=== PATIENT | female | born 1945 | race Caucasian/White ===

== ENCOUNTER → 2016-09-26 | Outpatient (CLI) | payer MEDICARE ==
[~2016-09-26] MED LIST: ACETAMINOPHEN500 M5 PO; ACETAMINOPHEN500 M7 PO; ADVIL200 M2 PO; ALBUTEROL17 GM INH; ALPRAZOLAM PO; ALPRAZOLAM0.25 M1 PO; ALPRAZOLAM0.25 MG PO; AMIODARONE PO; AMITRIPTYLINE H25 MG PO; AMITRYPTYLINE PO; ANEXSIA 7.5/3251 TA1 PO; ASPIRIN EC81 M1 PO; AUGMENTIN PO; AZITHROMYCIN500 MG PO; BETA VAL TOP; CARDIZEM30 M1 PO; CARDIZEM60 M1 PO; CELEXA PO; CELEXA10 MG PO; CELEXA20 MG PO; CIPRO PO; CIPRO250 MG PO; CITALOPRAM HBR10 MG PO; COMBIVENT MININEB INH; COMBIVENT U/D3 M3 INH; COUMADIN2.5 MG PO; COUMADIN5 MG PO; CRESTOR10 MG PO; CRESTOR5 MG PO; CYANOCOBAL1000 MCG/M IM; DILTIAZEM HCL60 MG PO; DOCU SOFT100 M1 PO; DOXYCYCLINE HY100 M3 PO; DSS100 MG PO; ELIQUIS5 MG PO; FOLIC ACID PO; FOLIC ACID1 MG PO; GABAPENTIN300 M2 PO; GABAPENTIN300 MG PO; GABAPENTIN600 MG PO; HYDROCODON-ACE1 EAC7 PO; HYDROCODONE-APA1 T42 PO; HYDROXYZINE HCL10 MG PO; IPRAT-ALBUT 0.5-3 ML INH; JANTOVEN2.5 MG PO; JANTOVEN5 MG PO; KEFLEX; LASIX PO; LASIX20 MG PO; LEVAQUIN PO; LIPITOR PO; LIPITOR40 MG PO; LISINOPRIL PO; LISINOPRIL10 MG PO; LISINOPRIL20 MG PO; LOMOTIL TABLET1 TAB PO; LOPRESSOR PO; LOVENOX80 MG/0.8 SUBQ; METHYLPREDNISOLO4 MG PO; METOPROLOL SUCC25 MG PO; METOPROLOL SUCC50 MG PO; METOPROLOL TAR25 MG PO; METOPROLOL/HCTZ PO; MOBIC PO; MULTI VITAMIN1 EACH PO; MULTIVITAMINS W1 TAB; NEURONTIN300 MG PO; NEURONTIN600 MG PO; NORCO 5/325 TAB1 TAB PO; NORCO1 TAB 10/3 PO; NORVASC PO; OMNICEF300 M1 PO; ONDANSETRON HCL4 M1 PO; ONDANSETRON HCL4 MG PO; OXYGEN; PANTOPRAZOLE SO40 MG PO; PREDNISONE PO; PREDNISONE10 MG PO; PREDNISONE10 MG/DOSE PO; PROAIR HFA8.5 GM; PROAIR HFA8.5 GM INH; PROMETHAZINE HC25 MG PO; PROTONIX PO; STOOL SOFTENER50 MG PO; SYMBICORT 160/4.6 GM INH; SYMBICORT INH; TAMIFLU75 M1 PO; THIAMINE HCL100 MG; TOPROL XL 50 MG50 M1 PO; TOPROL XL PO; TOPROL XL50 MG PO; VALACYCLOVIR1000 MG PO; VIBRAMYCIN100 M1 PO; VITAMIN B 12 INJ; VITAMIN B-1000 MCG/1 INJ; WARFARIN SODIU2.5 M1 PO; XARELTO15 MG PO; XARELTO20 MG PO; ZESTORETIC 20/11 TAB; ZESTRIL10 M2 PO; ZITHROMAX PO; ZITHROMAX500 MG PO
== END | disposition home or self-care (01) ==
LOC: CLAB 14:32
DX: D64.9 Anemia, unspecified (principal)
CPT/HCPCS: 36415; 86850; 86900; 86901; 86923

== ENCOUNTER → 2016-09-27 | Outpatient (CLI) | payer MEDICARE | END | disposition home or self-care (01) | LOC: CSSDAY 08:28 | DX: D50.9 Iron deficiency anemia, unspecified (principal); K90.9 Intestinal malabsorption, unspecified | CPT/HCPCS: 36430; J1200; J1940; P9016 ==

== ENCOUNTER → 2016-09-28 | Outpatient (CLI) | payer MEDICARE ==
--- NOTE | ~2016-09-28 | CT57 ---
[facility] A Service of [facility] RADIOLOGY TEXT RESULTS PATIENT: KAVYA HUNTER [facility] [id number] : 43 UNIT #: [id number] AGE: [address]: Onur Alas MD SEX: F ORDER DR: [id number] [address] [address] [id number] O MR#: [id number] Acc #: [id number] NAME: KAVYA HUNTER. : 1945 SEX: F STUDY DATE/TIME: 09/28/2016 12:48 UNIT: CCA ROOM: STUDY DESCRIPTION: CT Chest Wo Cont Attending Physician: Onur Alas M.D. Referring Physician: Onur Alas M.D. Ordering Physician: Onur Alas M.D. Primary Care Physician: Leopoldo Wallis Jr., M.D. MEDICAL IMAGING REPORT This report is preliminary unless electronic signature is present EXAM CT chest 09/28/2016 INDICATIONS Lung cancer. New pulmonary nodule. Restaging. TECHNIQUE CT of the thorax without contrast. Coronal and sagittal reconstructions were obtained. This CT exam was performed with one or more of the following radiation dose reduction techniques: automatic exposure control, adjustment of mA and/or kV according to patient size, and iterative reconstruction. COMPARISON CT thorax dated 06/28/2016. FINDINGS There is a patchy nodular opacity in the posterior medial aspect of the left lower lobe measuring up to 1.9 cm. This is unchanged from the prior study of 06/28/2016. There is a new dense area of consolidation in the medial aspect of the superior segment right lower lobe with some associated air bronchograms. This is presumably an area of pneumonia. This results in volume loss in the majority of the superior segment right lower lobe. No pathologically enlarged mediastinal or hilar lymph nodes. No pericardial or pleural effusion. Limited images of the upper abdomen were obtained. There is no acute findings. [facility] A Service of [facility] RADIOLOGY TEXT RESULTS PATIENT: KAVYA HUNTER [facility] #: [id number] : 43 UNIT #: [id number] AGE: [address]: Onur Alas MD SEX: F ORDER DR: No new osseous abnormalities. IMPRESSION 1. Development of a new area of atelectasis and consolidation involving the superior segment, right lower lobe. Air bronchograms support acute pneumonia. Please correlate with clinical symptoms. Short-interval followup is recommended. 2. Patchy airspace opacity in the left lung base is unchanged from prior study and should be followed. Dictated by... Pankaj Ornelas M.D. THIS IS AN ELECTRONICALLY VERIFIED REPORT Pankaj Ornelas M.D. at 09/29/2016 9:23 AM DURGA/valerie TD: 09/28/2016 18:39 JOB #: [id number] MEDICAL IMAGING REPORT COPY
== END | disposition home or self-care (01) ==
LOC: CCAT 12:18
DX: C34.90 Malignant neoplasm of unspecified part of unspecified bronchus or lung (principal); R91.1 Solitary pulmonary nodule; J98.11 Atelectasis; J18.1 Lobar pneumonia, unspecified organism
CPT/HCPCS: 71250

== ENCOUNTER → 2016-10-18 | Outpatient (CLI) | payer MEDICARE ==
[2016-10-18 12:41] LABS: ALBUMIN SERUM 3.1 g/dL (3.5-5.0); BILIRUBIN,TOTAL 0.4 mg/dL (0.2-2.0); CALCIUM SERUM 8.5 mg/dL (8.4-10.2); CREATININE SERUM 1.1 mg/dL (0.6-1.4); GLOM FILT RATE Estimated 50.5 mL/min (>60); MAGNESIUM 1.9 mg/dL (1.6-3.0); POTASSIUM 4.4 mmol/L (3.5-5.1); PROTEIN TOTAL SERUM 6.5 g/dL (6.0-8.3)
[2016-10-18 19:43] LABS: HEMOGLOBIN 8.4 gm/dL (12.0-16.0); MEAN CELL VOLUME 93.8 FL (83-96); MEAN CORPUSCULAR HEMOGLOBIN 29.3 PG (28-34); MEAN CORPUSCULAR HGB CONC 31.2 g/dL (30-36); RED BLOOD COUNT 2.88 X10e (3.90-5.30); RED CELL DISTRIBUTION WIDTH 18.5 % (11.0-15.5); WHITE BLOOD COUNT 7.2 X10e3 (4.0-10.5)
== END | disposition home or self-care (01) ==
LOC: CLAB 11:40
PROVIDERS: Surgery
DX: D64.9 Anemia, unspecified (principal)
CPT/HCPCS: 36415; 80053; 83735; 83880; 85027

== ENCOUNTER 2016-10-20 11:16 | Observation (INO) | payer MEDICARE ==
--- NOTE | ~2016-10-20 | DS ---
Unit #: [id number] #: [id number] Patient: KAVYA HUNTER [id number] [address] [place], [place] [address] [id number] I MR#: [id number] NAME: KAVYA HUNTER ROOM: 47 Age: 70 Sex: F Admission Date: 10/20/2016 : 1945 Discharge Date: 10/21/2016 Attending Physician: Onur Alas M.D. Referring Physician: Missael Hickey M.D. Primary Care Physician: Leopoldo Wallis Jr., M.D. DISCHARGE SUMMARY HOSPITAL COURSE Ms. 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 On CAT scan of the chest on 06/28/2016 she showed a spiculated left lower lobe pulmonary nodule that was biopsied at that time. Final pathology revealed negative for carcinoma. CT scan on 09/28/2016 showed no change in the left lower lobe. However, she did have atelectasis and infiltrate in the right base as well. Subsequently she was scheduled for a bronchoscopy with washings with possible biopsies, flexible bronchoscopy with washings from the right middle lobe, right lower lobe and bronchial washings and DLL from the right lower lobe under the direction of Dr. Alas on 10/20/2016. Unfortunately Ms. Hunter has multiple comorbidities and she did not tolerate conscious sedation. She postoperatively, due to decreased pulmonary status, had some low O2 saturations and was slow to wake up. Dr. Alas chose to keep her in the hospital overnight with the diagnosis of atelectasis on chest x-ray. Today she is back to baseline. Respiratory rate is even and unlabored at 20. She is on O2 at 2 liters, which we have taken off now and will check an O2 saturation. She does already have home O2. PHYSICAL EXAMINATION VITALS: Her temperature is 98.3, heart rate 74 and blood pressure 132/44. LUNGS: Her lungs have bilateral rhonchi, which she is clearing with cough. CARDIOVASCULAR: S1 and S2 without rub, without murmur. No S3 or S4. EXTREMITIES: No peripheral edema. ABDOMEN: Round, soft and bowel sounds positive. Nontender. No pulsatile masses or hepatosplenomegaly. DISCHARGE MEDICATIONS 1. Albuterol HFA. 2. ProAir 2 puffs q.4 h. p.r.n. 3. Symbicort 160/4.5 two inhalations b.i.d. 4. Duo-Nebs, mini-nebs t.i.d. p.r.n. 5. Xarelto 20 mg 1 p.o. daily. She can restart that today. 6. Gabapentin 300 mg 1 b.i.d. 7. Amitriptyline 10 mg once at bedtime. 8. Citalopram 20 mg daily. 9. Alprazolam 0.25 mg t.i.d. 10. Diltiazem 30 mg b.i.d. 11. Metoprolol 25 mg t.i.d. 12. Dulcolax 50 mg daily. 13. Lasix 40 mg daily. Unit #: [id number] #: [id number] Patient: KAVYA HUNTER 14. Atorvastatin 10 mg daily. 15. Folic aid 1 mg daily. 16. We are going to continue Levaquin 500 mg 1 p.o. q.a.m. times 10 days. 17. She will be continued on Levaquin 500 mg at home times 10 days. IMPRESSION 1. Left lower lobe pulmonary nodule with right lung atelectasis and infiltrate. Status post flexible bronchoscopy with fluoroscopy on 10/20/2016, with intolerance to conscious sedation. 2. Atelectasis. PLAN Discharge home. FOLLOWUP Follow up on 10/26/2016 at 2 o'clock at [facility]. [facility] office with Dr. Onur Alas. Dictated by... Austin Hernandez/jena TD: 10/21/2016 09:48 JOB #: [id number] DISCHARGE SUMMARY Page 1 of 1 X Chata Richmond APRN X DISCHARGE SUMMARY
--- NOTE | ~2016-10-20 | CR72 ---
[facility] A Service of [facility] & [facility] RADIOLOGY TEXT RESULTS PATIENT: KAVYA HUNTER LOCATION: [place] [address] : 43 UNIT #: [id number] AGE: [address]: Onur Alas MD SEX: F ORDER DR: [id number] [facility] [address]. [place], [place] [address] [id number] I MR#: [id number] Acc #: [id number] NAME: KAVYA HUNTER. : 1945 SEX: F STUDY DATE/TIME: 10/20/2016 15:17 UNIT: CPACUOF ROOM: STUDY DESCRIPTION: CR Chest Single View Portable Attending Physician: Onur Alas M.D. Referring Physician: Onur Alas M.D. Ordering Physician: Onur Alas M.D. Primary Care Physician: Leopoldo Wallis Jr., M.D. MEDICAL IMAGING REPORT This report is preliminary unless electronic signature is present EXAM Portable chest. HISTORY 70-year-old female with postbronchoscopy. History of lung cancer. COMPARISON 08/12/2006 FINDINGS The right hilar mass appears less dense. No pneumothorax. Stable interstitial changes. Heart size stable. IMPRESSION 1. No pneumothorax. 2. Stable interstitial changes. 3. Right hilar mass appears less dense. Dictated by... Alejo Hoffman M.D. THIS IS AN ELECTRONICALLY VERIFIED REPORT Alejo Hoffman M.D. at 10/20/2016 9:52 PM CHIRAG/gerardo TD: 10/20/2016 18:19 JOB #: [id number] MEDICAL IMAGING REPORT Page 1 of 1 COPY
--- NOTE | ~2016-10-20 | CR72 ---
[facility] A Service of [facility] & [facility] RADIOLOGY TEXT RESULTS PATIENT: KAVYA HUNTER LOCATION: [place] [address]- : 43 UNIT #: [id number] AGE: [address]: Onur Alas MD SEX: F ORDER DR: [id number] [facility] [address] [place], [place] [address] [id number] I MR#: [id number] Acc #: [id number] NAME: KAVYA HUNTER. : 1945 SEX: F STUDY DATE/TIME: 10/21/2016 8:52 UNIT: [facility] ROOM: [facility] STUDY DESCRIPTION: CR Chest Single View Portable Attending Physician: Onur Alas M.D. Referring Physician: Onur Alas M.D. Ordering Physician: Chata Richmond A.P.R.N. Primary Care Physician: Leopoldo Wallis Jr., M.D. MEDICAL IMAGING REPORT This report is preliminary unless electronic signature is present EXAM Portable chest, 10/21/2016. COMPARISON 10/20/2016 HISTORY Supplied is shortness of breath and cough for 2 days. History of left lung cancer in 2012. TECHNIQUE An AP view is obtained. Cardiac size is normal. Postsurgical changes are present in the left apex. The study shows a decrease in pulmonary vascular congestion and interstitial edema. CONCLUSION Significant decrease in interstitial edema compared with the last study. Postop changes of prior left upper lobe resection. Dictated by... Leopoldo Berg M.D. THIS IS AN ELECTRONICALLY VERIFIED REPORT Leopoldo Berg M.D. at 10/23/2016 5:02 PM NENA/gil TD: 10/21/2016 12:45 JOB #: [id number] MEDICAL IMAGING REPORT Page 1 of 1 COPY
--- NOTE | ~2016-10-20 | OR ---
Unit #: [id number] #: [id number] Patient: KAVYA HUNTER [id number] [address] [place], [place] [address] [id number] I MR#: [id number] NAME: KAVYA HUNTER ROOM: 47 Date of Procedure: 10/20/2016 Admission Date: 10/20/2016 Surgeon: Onur Alas M.D. : 1945 Attending Physician: Onur Alas M.D. Referring Physician: Onur Alas M.D. Primary Care Physician: Leopoldo Wallis Jr., M.D. OPERATIVE REPORT PREOPERATIVE DIAGNOSES Infiltrate involving the superior segment of the right lower lobe; prior history of lung carcinoma. POSTOPERATIVE DIAGNOSES Infiltrate involving the superior segment of the right lower lobe; prior history of lung carcinoma. PROCEDURES PERFORMED Flexible fiberoptic bronchoscopy with brushings obtained from the superior segment of the right lower lobe and also from the right middle lobe; bronchial washings collected; bronchoalveolar lavage obtained from the superior segment of the right lower lobe. ANESTHESIA Local plus IV sedation. ESTIMATED BLOOD LOSS Minimal. COMPLICATIONS None. DESCRIPTION OF PROCEDURE The patient was taken to the endoscopy suite and left on her stretcher in a supine position. After appropriate monitoring lines had been placed, IV sedation was obtained using a total of 5 mg of intravenous Versed and 125 mcg of intravenous fentanyl. Anesthesia of the posterior pharynx was obtained using Hurricaine spray. After adequate anesthesia had been obtained in this fashion, the flexible bronchoscope was passed orally per a bite block into the posterior pharynx. The vocal cords were visualized and found to be without lesions and both moved well with phonation. Anesthesia of the cords was obtained by injecting 2% Xylocaine per the scope. The scope was passed through the cords into the trachea. 1% Xylocaine was injected per the scope to anesthetize the tracheobronchial tree. The entire length of trachea was visualized and found to be normal. The kristel was sharp. The left mainstem bronchus was normal. The left upper lobe and left lower lobe were both examined to their subsegmental bronchi level and found to be within normal limits. The right upper lobe was examined to its subsegmental bronchi level and found to be within normal limits. Examination of the right middle lobe revealed some minimal erythema of the medial branch. Examination of the right lower lobe Unit #: [id number] #: [id number] Patient: KAVYA HUNTER demonstrated some mild narrowing of the medial branch of the superior segment. The basilar segments were opened and without lesions. Brushings were obtained from the medial branch of the superior segment of the right lower lobe. Brushings were also obtained from the medial segment of the right middle lobe. Bronchial washings were collected and sent for cytology as well as cultures. Bronchoalveolar lavage was then obtained from the superior segment of the right lower lobe. Following this, the bronchoscope was removed. The patient did experience some drop in O2 sats at the later part of the procedure and this took several minutes for the patient to recover postoperatively. A breathing treatment with albuterol was given to the patient. She was then transported to the recovery area. Dictated by... Onur Alas M.D. GURPREET/gabe TD: 10/21/2016 03:25 JOB #: [id number] OPERATIVE REPORT Page 1 of 1 X Onur Alas MD X PROCEDURE OPERATIVE NOTE
[~2016-10-20 11:16] MED LIST changes: -ACETAMINOPHEN500 M7 PO; -AMIODARONE PO; -ASPIRIN EC81 M1 PO; -AUGMENTIN PO; -CYANOCOBAL1000 MCG/M IM; -DOXYCYCLINE HY100 M3 PO; -LEVAQUIN PO; -PANTOPRAZOLE SO40 MG PO; -PREDNISONE PO; -VITAMIN B 12 INJ; -XARELTO15 MG PO
[2016-10-20] MEDS ORDERED: XARELTO20 MG PO (11:35)
[2016-10-20] MEDS ORDERED: VITAMIN B 12 INJ (11:36)
[2016-10-20] MEDS ORDERED: ALPRAZOLAM0.25 MG PO (11:36)
[2016-10-20 16:23] LABS: BF TOTAL NUCLEATED CELL COUNT 79 CMM (0-100); BODY FLUID APPEARANCE BLOODY; BODY FLUID SOURCE BRONCHIAL LAVAGE
[2016-10-20 16:24] LABS: BODY FLUID RBC 32284 CMM
[2016-10-21] MEDS ORDERED: LEVAQUIN PO (10:54)
[2016-11-29] MEDS ORDERED: XARELTO15 MG PO (13:37)
[2016-11-29] MEDS ORDERED: CYANOCOBAL1000 MCG/M IM (13:38)
[2016-11-29] MEDS ORDERED: PANTOPRAZOLE SO40 MG PO (13:39)
[2016-11-29] MEDS ORDERED: ACETAMINOPHEN500 M7 PO (13:40)
[2016-11-29] MEDS ORDERED: OXYGEN (13:40)
== END 2016-10-21 11:22 | disposition home or self-care (01) ==
LOC: COPS 11:16 → CPACUOF 17:09 → C4C 19:15
PROVIDERS: Surgery
DX: R91.8 Other nonspecific abnormal finding of lung field (principal); R91.1 Solitary pulmonary nodule; J98.11 Atelectasis; Z85.118 Personal history of other malignant neoplasm of bronchus and lung
CPT/HCPCS: 71010; 87070; 87102; 87106; 87116; 87205; 87206; 87252; 87254; 88104; 88108; 88305; 88312; 89051; 94640; 96374; G0378; J0171; J1956; J2250; J3010

== ENCOUNTER 2016-12-05 09:51 | Inpatient (IN) | payer MEDICARE ==
--- NOTE | ~2016-12-05 | CR72 ---
[facility] A Service of [facility] & [facility] RADIOLOGY TEXT RESULTS PATIENT: KAVYA HUNTER LOCATION: [facility] [id number] : 44 UNIT #: [id number] AGE: [address]: Barney Bhakta MD SEX: F ORDER DR: [id number] [facility] [address] [place], [place] [address] [id number] E MR#: [id number] Acc #: [id number] NAME: KAVYA HUNTER : 1945 SEX: F STUDY DATE/TIME: 12/05/2016 10:22 UNIT: [facility] ROOM: STUDY DESCRIPTION: CR Chest Single View Portable Attending Physician: Bib Brower M.D. Ordering Physician: Bib Brower M.D. Primary Care Physician: Leopoldo Wallis Jr., M.D. MEDICAL IMAGING REPORT This report is preliminary unless electronic signature is present EXAM Chest portable, 12/05/2016 10:22 hours HISTORY 71-year-old woman complaining of shortness of air today. History of COPD, hypertension and previous wedge resection of lung. COMPARISON 10/21/2016 FINDINGS Portable upright chest demonstrates mild cardiomegaly appearing slightly increased from 10/21/2016. There is atherosclerotic change of the aorta with normal contours. There is linear suture line in the left upper lung indicating site of prior wedge resection. There is pulmonary venous distension and interstitial prominence diffusely in the right lung greater than left lung, increased from the prior study suggesting an element of edema. No definite effusion. IMPRESSION 1. Stable postop change of wedge resection in the left upper lobe. 2. Heart size is mildly increased from 10/21/2016 with slight increase in interstitial changes right greater than left lung suggesting edema. No definite effusion is seen. There is chronic blunting of the left costophrenic sulcus. Dictated by... Prudence Crum M.D. THIS IS AN ELECTRONICALLY VERIFIED REPORT Prudence Crum M.D. at 12/05/2016 2:30 PM DONTE/brielle [facility] A Service of [facility] & [facility] RADIOLOGY TEXT RESULTS PATIENT: KAVYA HUNTER LOCATION: [facility] [id number] : 44 UNIT #: [id number] AGE: [address]: Barney Bhakta MD SEX: F ORDER DR: TD: 12/05/2016 12:52 JOB #: [id number] MEDICAL IMAGING REPORT Page 1 of 1 COPY
--- NOTE | ~2016-12-05 | EKG ---
PATIENT: KAVYA HUNTER UNIT #: [id number] Ventricular Rate: 72 BPM Atrial Rate: 72 BPM P-R Interval: 170 ms QRS Duration: 86 ms Q-T Interval: 452 ms QTC Calculation(Bezet): 494 ms P [place]: 46 degrees Calculated R [place]: 13 degrees Calculated T [place]: 36 degrees Diagnosis Line: Normal sinus rhythm Diagnosis Line: Prolonged QT Diagnosis Line: Abnormal ECG Diagnosis Line: When compared with ECG of 05-DEC-2016 10:17, Diagnosis Line: (unconfirmed) Diagnosis Line: Sinus rhythm has replaced Junctional rhythm Diagnosis Line: Vent. rate has decreased BY 42 BPM Diagnosis Line: Confirmed by TARAS EVANS MD ([id number]) on Diagnosis Line: 12/07/2016 1:14:03 PM INTERPRETING MD: SAMANTHA
--- NOTE | ~2016-12-05 | CO ---
Unit #: [id number] #: [id number] Patient: KAVYA HUNTER [id number] [facility]. [place], [place] [address] [id number] I MR#: [id number] NAME: KAVYA HUNTER ROOM: 559 Age: 71 Sex: F Admission Date: 12/05/2016 : 1945 Attending Physician: Barney Bhakta M.D. Primary Care Physician: Leopoldo Wallis Jr., M.D. Consultation Date: 12/06/2016 CONSULTATION REPORT REASON FOR CONSULTATION Atrial fibrillation with rapid ventricular response. HISTORY OF PRESENT ILLNESS This is a 71-year-old white female, who is well known to Dr. Trinh. She follows her in the office, has a history of paroxysmal atrial fibrillation, on Xarelto. She also has history of having squamous cell lung cancer and had a LVAD in 10/2016 with a wedge resection. According the patient, she says she is in remission. She has COPD and obstructive sleep apnea, but refuses to use a CPAP. She is hypertensive, hyperlipidemia, and has history of severe anemia requiring blood transfusions in the past. She has chronic kidney disease, history of diastolic congestive heart failure and she continues to smoke. The patient came into the emergency room after having on this past Sunday having a colonoscopy, on that procedure she had a polypectomy with the argon plasma ablation. She says she tolerated the procedure without any problems. She came home and later that evening she was doing fairly well. The next morning, she woke up, she tried to get up to go across the room to the bathroom, she said she got very dyspneic. She had taken her oxygen off, she placed it back on and she continued to be dyspneic. She called 911. She slid off her recliner which she normally sleeps in and she says, everything sort of appeared to be confused after EMS got there until she came to the hospital. She is being managed by Dr. Bhakta for exacerbation of COPD. During the night, she had some runs of atrial fibrillation with rapid ventricular response. She was started on a Cardizem drip. Also her cardiac enzymes; troponin is 0.11 and 0.18. Her BNP is 199. Her hemoglobin is 9.8 with the white blood count of 11.4. Cardiology has been consulted to assist with evaluation and management. On interview with the patient, she denies having any chest pain, pain in her neck; bilateral jaws, shoulders, arms, or elbow. She denies any palpitations, dizziness, presyncope or syncopal episodes. However, she states she did have some memory lapse between the time EMS got there and they brought her to the hospital. She is not sure if her oxygen was well, she was not very responsive. PAST MEDICAL HISTORY 1. History of LVAD in 10/2016 with wedge resection in left upper lobe for squamous cell lung carcinoma, history of previous wedge resection in 02/2016. 2. COPD. 3. Obstructive sleep apnea, refuses CPAP. 4. Paroxysmal atrial fibrillation, on Xarelto. Unit #: [id number] #: [id number] Patient: KAVYA HUNTER 5. Hypertension. 6. Hyperlipidemia. 7. History of diastolic congestive heart failure. 8. History of severe anemia in the past, requiring blood transfusion and follows Dr. Hickey. 9. Chronic kidney disease. 10. Osteoarthritis. 11. Peripheral neuropathy. 12. In 02/2016, 2D echo, LVEF of 60% with [id number] mitral regurgitation, and mild tricuspid regurgitation. 13. In 2012, Lexiscan Cardiolite stress test with an ejection fraction of 83%, no ischemia, no infarction. 14. On 12/04/2016, colonoscopy with a polypectomy with argon plasma ablation. 15. Active nicotine abuse. PAST SURGICAL HISTORY 1. On 12/04/2016 colonoscopy with polypectomy with argon plasma ablation. 2. Cholecystectomy. 3. Hemorrhoidectomy. 4. Back surgery. 5. Wedge resection in 02/2016 and LVAD in 10/2016 with wedge resection in the left upper lobe. HOME MEDICATIONS Amitriptyline 10 mg p.o. at bedtime, citalopram 20 mg p.o. daily, Cardizem p.o. b.i.d., ipratropium/albuterol sulfate one inhalation p.r.n., metoprolol 25 mg p.o. t.i.d., Symbicort 2 inhalations b.i.d., Lipitor 10 mg p.o. at bedtime, ProAir 2 puffs inhalation every 4 hours p.r.n. for shortness of breath, Neurontin 600 mg p.o. t.i.d., Lasix 20 mg p.o. daily and the patient has only been taking this p.r.n., stool softener 550 mg p.o. daily p.r.n., folic acid 1 mg p.o. daily, alprazolam 0.25 p.o. t.i.d. p.r.n. for anxiety, Xarelto 15 mg p.o. daily, cyanocobalamin one dose, vitamin B12 injection weekly on Wednesdays. ALLERGIES 1. Adhesive tape. 2. Trazodone. SOCIAL HISTORY The patient lives in her home alone. Her daughter lives a little close. She continues to smoke half to a pack of cigarettes a day. She has been smoking most of her adult life. No alcohol or illicit drug abuse. FAMILY HISTORY Her father at the age of 69 from bone cancer and he also had a myocardial infarction before his . Mother and siblings were in generally well health. REVIEW OF SYSTEMS See details in HPI. PHYSICAL EXAMINATION GENERAL: Ms. Hunter is a 71-year-old white female, in no acute respiratory distress. On exam, she is awake, alert, oriented. VITAL SIGNS: Blood pressure is currently 123/48, heart rate 68, respirations 18, temperature 98.1, O2 saturations 97% on 3 L. NECK: Trachea midline. No thyromegaly or lymphadenopathy. Normal Unit #: [id number] #: [id number] Patient: KAVYA HUNTER carotid upstrokes. No jugular venous distention. HEART: S1, S2. Regular rate and rhythm. Soft systolic murmur at the left sternal border. LUNGS: Decreased, diminished, especially in the left. ABDOMEN: Obese, soft, nontender. EXTREMITIES: Pedal pulses are palpable. 1+ pedal edema. DIAGNOSTIC STUDIES LABORATORY RESULTS: ABGs; pH is 7.416, pCO2 36.7, PO2 79.9, O2 saturation 95.2, FiO2 of 50. Glucose is 138, BUN 17, creatinine 1.1, eGFR is 50.1, sodium 140, potassium 4.0, chloride 105, CO2 of 23, calcium is 8.8, magnesium is 1.9, total protein 7.2, albumin 3.5, bilirubin total 0.3, AST 53, ALT 29, alkaline phosphatase is 103. BNP is 199. Fasting lipid profile is pending. WBC is 11.4, hemoglobin 9.8, hematocrit 31.3, and platelets are 252. Initial cardiac enzymes; CK-MB is 1.5, troponin less than 0.05. CK is 34 with troponin 0.18. IMAGING STUDIES: Chest x-ray shows stable postop change of wedge resection in the left upper lobe, slight increase in interstitial changes, right greater than left suggesting edema. CARDIOVASCULAR STUDIES: EKG shows sinus tach with ventricular rate of 114 beats per minute, septal Q waves, septal infarct, age undetermined, poor R-wave progression. Telemetry during the night showed atrial fibrillation with rapid ventricular response. IMPRESSION 1. Acute on chronic respiratory failure, exacerbation of chronic obstructive pulmonary disease. 2. Mild acute on chronic diastolic congestive heart failure. 3. Atrial fibrillation with rapid ventricular response. 4. Mildly elevated troponin. 5. History of paroxysmal atrial fibrillation, has been on Xarelto. 6. Hypertension. 7. Hyperlipidemia. 8. History of anemia. Follows Dr. Hickey. 9. Chronic kidney disease. 10. Last 2D echo in 02/2016 showed LVEF of 60% with [id number] mitral regurgitation, mild tricuspid regurgitation. 11. Normal stress test back in 2012. 12. On 12/04/2016 she had a colonoscopy with polypectomy with argon plasma ablation. 13. History of squamous cell lung cancer and had LVAD in 10/2016, previously had a wedge resection in 02/2016. 14. Obstructive sleep apnea, refuses CPAP. 15. Osteoarthritis and peripheral neuropathy. 16. Active nicotine abuse. PLAN 1. Cardiology consult to assist with evaluation and management and management of her atrial fibrillation with RVR. The patient was started on a Cardizem drip. We will increase her oral doses of Cardizem to 90 mg p.o. b.i.d. with parameters. In addition, we will add on amiodarone 200 mg p.o. b.i.d. to maintain normal sinus rhythm. Since the initiation of the IV Cardizem, the patient has converted back to normal sinus rhythm. 2. The patient's troponin has peaked at 0.[address] Trinh had a long discussion to the patient about may be needing a heart catheterization, but at this point, since she has no signs or symptoms of Unit #: [id number] #: [id number] Patient: KAVYA HUNTER angina, she wants to wait. 3. We will gently diurese with IV Lasix 20 mg IV b.i.d. and monitor electrolytes and BUN and creatinine. 4. Obtain a fasting lipid profile. I also add a TSH for evaluation. 5. The patient as far as anticoagulation, Xarelto. She says she has only had one dose since last Sunday which was last night. We will hold the Xarelto and keep her on Lovenox for now 1 mg/kg subcu daily. 6. We will continue to monitor closely. Further recommendations pending per Dr. Trinh. 7. Encourage the patient to completely quit smoking. Smoking cessation information provided to the patient. 8. Further recommendations pending per Dr. Trinh. Dictated by... Austin Mendoza/gabe TD: 12/07/2016 03:26 JOB #: [id number] CONSULTATION REPORT Page 1 of 1 X Molly Bose APRN CONSULTATION REPORT
--- NOTE | ~2016-12-05 | DS ---
Unit #: [id number] #: [id number] Patient: KAVYA HUNTER [id number] [address] [place], [place] [address] [id number] I MR#: [id number] NAME: KAVYA HUNTER. ROOM: 559 Age: 71 Sex: F Admission Date: 12/05/2016 : 1945 Discharge Date: 12/08/2016 Attending Physician: Barney Bhakta M.D. Primary Care Physician: Leopoldo Wallis Jr., M.D. DISCHARGE SUMMARY DISCHARGE DIAGNOSES 1. Acute and chronic hypoxemic, hypercarbic respiratory failure. 2. Chronic obstructive pulmonary disease exacerbation. 3. Atrial fibrillation, rapid ventricular response. 4. Obstructive sleep apnea, refuses continuous positive airway pressure. 5. Hypertension. 6. History of diastolic cardiac dysfunction. 7. Indeterminate elevation in troponin. 8. Anemia. 9. Colonic polyps status post biopsy and removal by Dr. Hickey, tubular adenomas. DISCHARGE MEDICATIONS 1. DuoNeb or Combivent q.4 hours as needed. 2. Symbicort 160/4.5 mcg 2 puffs b.i.d. 3. Prednisone 40 mg for 4 days, decrease by 10 mg q.4 days until off. 4. Augmentin 875 b.i.d. x7 days. 5. Elavil 10 mg p.o. daily. 6. Celexa 20 mg daily. 7. Metoprolol 25 mg t.i.d. 8. Lipitor 10 mg q.h.s. 9. Gabapentin 600 mg t.i.d. 10. Folic acid 1 mg daily. 11. Protonix 40 mg daily. 12. Cyanocobalamin 1,000 mcg daily. 13. Amiodarone 200 mg b.i.d., dose to be adjusted by cardiology as an outpatient. 14. Aspirin 81 mg daily. 15. Lasix 20 mg p.o. b.i.d. 16. Colace 50 mg daily. 17. Xanax 0.25 mg t.i.d. as needed. 18. [place] per Dr. Duke Silverman for pain management. 19. Eliquis 15 mg daily. FOLLOWUP 1. Follow up in my office in 1 month. 2. Follow up with Dr. Trinh per her recommendations. 3. Follow up with Dr. Silverman. 4. Follow up with Dr. David Hickey. HOSPITAL COURSE Ms. Hunter is a 71-year-old white female with a history of severe COPD and chronic respiratory failure, maintained on home O2. Also has a history of paroxysmal atrial fibrillation, chronic pain, hypertension. Unit #: [id number] #: [id number] Patient: KAVYA HUNTER She underwent colonoscopy with removal of [address] Hickey. She was admitted the following day. Apparently her oxygen came off during the night. She became more short of breath. Her family and friends could not contact her. EMS and the police were called and sent to the house. They apparently had to break into the house. She was found without her oxygen on and hypoxic, transported to the emergency room. Please see H and P. She was placed on BiPAP. She was initially hypoxic and hypercarbic. With treatment with BiPAP, her pCO2 normalized. She was taken off the BiPAP and admitted to the floor. She was treated for exacerbation of COPD with inhaled bronchodilators, IV Solu-Medrol. She developed A fib, rapid ventricular response and was seen by cardiology. She had an indeterminate elevation of troponin of 0.11. She denied any chest pain. She did not wish any intervention. Her medicines were adjusted by Dr. Trinh. Amiodarone was added. Cardizem was discontinued. Her breathing has improved, and she will be discharged home. She has been cautioned on the use of benzodiazepines and narcotics, as these may cause respiratory depression. She expresses understanding. We will see her back in the office in 1 month. It was noted that on admission her hematocrit was approximately 31 but fell to its normal level of approximately 26 with hydration. CBC can be followed up as an outpatient. Dictated by... Barney Bhakta M.D. BLANK/shaneka TD: 12/09/2016 09:52 JOB #: [id number] DISCHARGE SUMMARY Page 1 of 1 X Barney Bhakta MD DISCHARGE SUMMARY
--- NOTE | ~2016-12-05 | EKG ---
PATIENT: KAVYA HUNTER UNIT #: [id number] Ventricular Rate: 60 BPM Atrial Rate: 60 BPM P-R Interval: 164 ms QRS Duration: 82 ms Q-T Interval: 550 ms QTC Calculation(Bezet): 550 ms P Whick: 45 degrees Calculated R Whick: 18 degrees Calculated T Whick: 63 degrees Diagnosis Line: Normal sinus rhythm Diagnosis Line: T wave abnormality, consider anterior ischemia Diagnosis Line: Prolonged QT Diagnosis Line: Abnormal ECG Diagnosis Line: When compared with ECG of 05-DEC-2016 23:19, Diagnosis Line: (unconfirmed) Diagnosis Line: T wave inversion now evident in Anterior leads Diagnosis Line: QT has lengthened Diagnosis Line: Confirmed by TARAS EVANS MD ([id number]) on Diagnosis Line: 12/07/2016 1:18:48 PM INTERPRETING MD: SAMANTHA
--- NOTE | ~2016-12-05 | CO ---
Unit #: [id number] #: [id number] Patient: KAVYA HUNTER [id number] [address] [place], [place] [address] [id number] I MR#: [id number] NAME: KAVYA HUNTER ROOM: 559 Age: 71 Sex: F Admission Date: 12/05/2016 : 1945 Attending Physician: Barney Bhakta M.D. Primary Care Physician: Leopoldo Wallis Jr., M.D. Consultation Date: 12/05/2016 CONSULTATION REPORT HISTORY OF PRESENT ILLNESS Ms. Hunter is a 71-year-old white female with a history of COPD, left upper lobe non-small cell lung cancer, status post resection in 2014, paroxysmal atrial fibrillation, maintained on Xarelto, hypertension, obstructive sleep apnea, for which she refuses CPAP. She underwent colonoscopy by Dr. Hickey yesterday and had three polyps removed, which were benign and had no tubular adenomas. She apparently did fine postprocedure and was discharged home. She apparently had her oxygen come off during the night and she was found poorly responsive, not wearing her oxygen, and was brought in by EMS. She was initially found by her son. In the emergency room, she was noted to be hypoxic. She was placed on BiPAP 16/6, 50%. Arterial blood gases return; pH 7.31, pCO2 of 43, PO2 of 191. Chest x-ray to my review showed no major acute infiltrates. There could have possibly been some minimal pulmonary vascular congestion. Her BMP was remarkable for glucose of 229. Cardiac enzymes were negative[place] [address], hematocrit was 31.3, platelet count was normal, hematocrit was stable from 10/18 when it was 27. She denied any fever, chills, sweats or purulent sputum. She had no chest pain. She had been off her Eliquis for procedure. HOME MEDICATIONS Include; Elavil, Celexa, Cardizem, DuoNeb, metoprolol, Symbicort, Lipitor, ProAir, Neurontin, Lasix, stool softener, folic acid, Xanax, Xarelto, cyanocobalamin, Protonix, acetaminophen, and home oxygen at 2.5 L. PAST MEDICAL HISTORY Medical problems include severe COPD with chronic respiratory failure, maintained on home oxygen, paroxysmal atrial fibrillation, obstructive sleep apnea for which she refuses CPAP, hypertension, non-small cell lung cancer, status post resection of the left upper lobe, also has a history of left lower lobe nodule, followed by Dr. Alas. Bronchoscopy results negative in October. ALLERGIES Trazodone and tape. SOCIAL HISTORY Still smokes a pack a day. No illegal drug use. No alcohol. FAMILY HISTORY Coronary artery disease, lung cancer, hypertension. PAST SURGICAL HISTORY Cholecystectomy, hemorrhoidectomy, back surgery, colonoscopy, and Unit #: [id number] #: [id number] Patient: KAVYA HUNTER resection of left upper lobe non-small cell lung cancer. REVIEW OF SYSTEMS CONSTITUTIONAL: No fevers or chills. HEENT: No rhinorrhea or nasal congestion. PULMONARY: She is dyspneic on exertion, has had no fever or chills. No purulent sputum. GI: No nausea or vomiting. Had recent colonoscopy with polyps removed. : No hematuria or dysuria. ENDOCRINE: No polyuria or polydipsia. Does have a history of diabetes. NEURO: No unilateral weakness or numbness. SKIN: No rash. No major pain issues. PHYSICAL EXAMINATION GENERAL: Obese, white female, in no distress. VITAL SIGNS: Blood pressure 134/64, pulse 114, respiratory rate 20, afebrile. HEENT: Normocephalic and atraumatic. Pupils equal, round, and reactive. Sclerae nonicteric. She is wearing full face BiPAP. Oral cavity not examined. NECK: Supple. Trachea midline. No cervical or supraclavicular lymphadenopathy. LUNGS: Reveal some mild expiratory wheeze bilaterally. CARDIAC: Heart sounds distant. Regular rate and rhythm. Could not appreciate murmur, rub or gallop. ABDOMEN: Nontender. Bowel sounds present. No hepatosplenomegaly. EXTREMITIES: Without clubbing, cyanosis or edema. NEUROLOGIC: Awake, oriented, alert. Moves all extremities. Cranial nerves grossly intact. DIAGNOSTIC STUDIES LABORATORY RESULTS: Reviewed as noted. IMAGING STUDIES: Chest x-ray, reviewed as noted. EKG reviewed as noted. IMPRESSION 1. Acute on chronic hypoxemic, hypercarbic respiratory failure. 2. Chronic obstructive pulmonary disease exacerbation possibly component of congestive heart failure. 3. Paroxysmal atrial fibrillation. 4. Obstructive sleep apnea, refuses CPAP. 5. Hypertension. 6. Non-small cell lung cancer, status post wedge resection, left upper lobe. 7. Left lower lobe nodule, followed by Dr. Alas. PLAN We will try off BiPAP. We will treat with inhaled bronchodilators, IV Solu-Medrol. We will evaluate for possible congestive heart failure with echocardiogram. We will rule out CT. We will make further recommendations pending this. We will hold Xarelto as she has just had biopsy two days ago. We will place her on Lovenox. We will make further recommendations pending this. Dictated by... Barney Bhakta M.D. Unit #: [id number] #: [id number] Patient: KAVYA HUNTER BLANK/gabe TD: 12/08/2016 03:43 JOB #: [id number] CONSULTATION REPORT Page 1 of 1 X Barney Bhakta MD X CONSULTATION REPORT
--- NOTE | ~2016-12-05 | EKG ---
PATIENT: KAVYA HUNTER UNIT #: [id number] Ventricular Rate: 114 BPM Atrial Rate: 127 BPM QRS Duration: 78 ms Q-T Interval: 336 ms QTC Calculation(Bezet): 463 ms Calculated R [place]: 43 degrees Calculated T [place]: 89 degrees Diagnosis Line: Accelerated Junctional rhythm Diagnosis Line: Septal infarct , age undetermined Diagnosis Line: Abnormal ECG Diagnosis Line: When compared with ECG of 09-AUG-2016 13:38, Diagnosis Line: Junctional rhythm has replaced Sinus rhythm Diagnosis Line: Septal infarct is now Present Diagnosis Line: Nonspecific T wave abnormality now evident in Diagnosis Line: Lateral leads Diagnosis Line: Confirmed by WANDA LOZADA MD ([id number]) on Diagnosis Line: 12/06/2016 8:47:23 AM INTERPRETING MD: NEVILLE MEJIA
[~2016-12-05 09:51] MED LIST changes: +ACETAMINOPHEN500 M7 PO; +CYANOCOBAL1000 MCG/M IM; +LEVAQUIN PO; +PANTOPRAZOLE SO40 MG PO; +VITAMIN B 12 INJ; +XARELTO15 MG PO
[2016-12-05 10:31] LABS: BASOPHIL# 0.1 X10e3 (0-0.3); BASOPHIL% 0.5 % (0-2.5); EOSINOPHIL# 0.1 X10e3 (0-0.7); EOSINOPHIL% 1.3 % (0.0-7.0); HEMATOCRIT 31.3 % (35.0-45.0); HEMOGLOBIN 9.8 gm/dL (12.0-16.0); LYMPHOCYTE# 1.4 X10e3 (1.0-3.5); LYMPHOCYTE% 12.6 % (17.0-45.0); MEAN CELL VOLUME 94.9 FL (83-96); MEAN CORPUSCULAR HEMOGLOBIN 29.6 PG (28-34); MEAN CORPUSCULAR HGB CONC 31.2 g/dL (30-36); MEAN PLATELET VOLUME 8.1 FL (6.5-11.5); MONOCYTE# 0.6 X10e3 (0-1.0); NEUTROPHIL# 9.1 X10e3 (1.5-7.1); NEUTROPHIL% 80.6 % (40-75); PLATELET COUNT 252 X10e3 (140-420); RED CELL DISTRIBUTION WIDTH 15.4 % (11.0-15.5); WHITE BLOOD COUNT 11.4 X10e3 (4.0-10.5)
[2016-12-05 10:33] LABS: DIFF IND NO
[2016-12-05 11:07] LABS: ARTERIAL BLD GAS O2 SATURATION 97.2 % (90.0-100.0); ARTERIAL BLOOD GAS CARBOXY HB 1.1 %sat (0.0-9.0); ARTERIAL BLOOD GAS HCO3 22.1 mmol/L; ARTERIAL BLOOD GAS PCO2 43.5 mmHg (35.0-45.0); ARTERIAL BLOOD GAS pH 7.314 (7.350-7.450)
[2016-12-05 11:09] LABS: ARTERIAL BLOOD GAS ALLEN TEST NORMAL; ARTERIAL BLOOD GAS ART SITE RIGHT RADIAL; ARTERIAL BLOOD GAS DELIVERY BIPAP 16/6; ARTERIAL DRAW? YES
[2016-12-05 11:12] LABS: ALBUMIN SERUM 3.5 g/dL (3.5-5.0); BILIRUBIN, DIRECT 0.1 mg/dL (0.0-0.2); BILIRUBIN,INDIRECT 0.2 mg/dL (0.0-0.9); BILIRUBIN,TOTAL 0.3 mg/dL (0.2-2.0); BUN/CREATININE RATIO 7.27; CALCIUM SERUM 8.7 mg/dL (8.4-10.2); CREATININE SERUM 1.1 mg/dL (0.6-1.4); GLOM FILT RATE Estimated 50.1 mL/min (>60); POTASSIUM 4.5 mmol/L (3.5-5.1); PROTEIN TOTAL SERUM 7.2 g/dL (6.0-8.3)
[2016-12-05 12:25] LABS: URINE SOURCE CLEAN CATCH
[2016-12-05 12:30] LABS: URINE APPEARANCE CLEAR; URINE BILIRUBIN NEG (NEG); URINE BLOOD NEG (NEG); URINE COLOR YELLOW; URINE GLUCOSE NEG (NEG); URINE KETONE NEG (NEG); URINE LEUKOCYTE ESTERASE NEG (NEG); URINE NITRATE NEG (NEG); URINE PH 6.5 (5-8); URINE PROTEIN NEG (NEG); URINE UROBILINOGEN 0.2 MG/DL (NEG)
[2016-12-05 12:33] LABS: CULTURE INDICATED? NO
[2016-12-05 14:15] LABS: POC - CKMB 1.5 ng/mL (0.0-7.9); POC - TROPONIN <0.05 ng/mL (<=0.05)
[2016-12-05 14:45] LABS: ARTERIAL BLD GAS O2 SATURATION 95.2 % (90.0-100.0); ARTERIAL BLOOD GAS CARBOXY HB 0.7 %sat (0.0-9.0); ARTERIAL BLOOD GAS HCO3 23.6 mmol/L; ARTERIAL BLOOD GAS MET HB 0.7 %sat (0.0-2.0); ARTERIAL BLOOD GAS PCO2 36.7 mmHg (35.0-45.0); ARTERIAL BLOOD GAS PO2 79.9 mmHg (80.0-100); ARTERIAL BLOOD GAS pH 7.416 (7.350-7.450)
[2016-12-05 14:46] LABS: ARTERIAL BLOOD GAS ALLEN TEST NORMAL; ARTERIAL BLOOD GAS ART SITE LEFT RADIAL; ARTERIAL BLOOD GAS DELIVERY NASAL CANNULA; ARTERIAL DRAW? YES
[2016-12-05 16:33] LABS: CK TOTAL 50 IU/L (26-140)
[2016-12-06 07:01] LABS: CK TOTAL 47 IU/L (26-140)
[2016-12-06 09:41] LABS: BUN/CREATININE RATIO 15.45; CALCIUM SERUM 8.8 mg/dL (8.4-10.2); CREATININE SERUM 1.1 mg/dL (0.6-1.4); GLOM FILT RATE Estimated 50.1 mL/min (>60); MAGNESIUM 1.9 mg/dL (1.6-3.0)
[2016-12-06 12:08] LABS: CK TOTAL 34 IU/L (26-140)
[2016-12-06 23:20] LABS: AMPHETAMINE NEG (NEG); BARBITURATES NEG (NEG); BENZODIAZEPINES POS (NEG); COCAINE NEG (NEG); MARIJUANA NEG (NEG); OPIATES POS (NEG); TRICYCLIC ANTIDEPRESSANTS POS (NEG); U METHADONE NEG (NEG)
[2016-12-07 08:38] LABS: BUN/CREATININE RATIO 23.84; CREATININE SERUM 1.3 mg/dL (0.6-1.4); POTASSIUM 4.3 mmol/L (3.5-5.1)
[2016-12-07 12:08] LABS: HEMATOCRIT 27.5 % (35.0-45.0); HEMOGLOBIN 8.9 gm/dL (12.0-16.0); MEAN CELL VOLUME 92.7 FL (83-96); MEAN CORPUSCULAR HEMOGLOBIN 30.1 PG (28-34); MEAN CORPUSCULAR HGB CONC 32.4 g/dL (30-36); RED BLOOD COUNT 2.96 X10e (3.90-5.30); RED CELL DISTRIBUTION WIDTH 14.8 % (11.0-15.5); WHITE BLOOD COUNT 9.9 X10e3 (4.0-10.5)
[2016-12-08 06:26] LABS: HEMATOCRIT 26.3 % (35.0-45.0); HEMOGLOBIN 8.4 gm/dL (12.0-16.0); MEAN CELL VOLUME 92.4 FL (83-96); MEAN CORPUSCULAR HEMOGLOBIN 29.4 PG (28-34); MEAN CORPUSCULAR HGB CONC 31.8 g/dL (30-36); MEAN PLATELET VOLUME 8.7 FL (6.5-11.5); RED BLOOD COUNT 2.85 X10e (3.90-5.30); RED CELL DISTRIBUTION WIDTH 14.8 % (11.0-15.5); WHITE BLOOD COUNT 8.7 X10e3 (4.0-10.5)
[2016-12-08 07:00] LABS: BUN/CREATININE RATIO 28.46; CALCIUM SERUM 8.5 mg/dL (8.4-10.2); CREATININE SERUM 1.3 mg/dL (0.6-1.4); POTASSIUM 4.1 mmol/L (3.5-5.1)
[2016-12-08] MEDS ORDERED: AMIODARONE PO (11:16)
[2016-12-08] MEDS ORDERED: PREDNISONE10 MG PO (11:17)
[2016-12-08] MEDS ORDERED: LASIX20 MG PO ×2 (11:17→11:23)
[2016-12-08] MEDS ORDERED: ASPIRIN EC81 M1 PO (11:27)
[2016-12-08] MEDS ORDERED: AUGMENTIN PO (11:27)
== END 2016-12-08 17:17 | disposition home or self-care (01) | DRG 291 ==
LOC: CED 09:51 → CEDOF 13:00 → C5B 20:50
PROVIDERS: Emergency Medicine; Internal Medicine; Internal Medicine Cardiovascular Disease
PROC: B24BYZZ Ultrasonography of Heart with Aorta using Other Contrast (ICD-10-PCS; principal; 2016-12-05)
DX: I13.0 Hypertensive heart and chronic kidney disease with heart failure and stage 1 through stage 4 chronic kidney disease, or unspecified chronic kidney disease (principal); J96.22 Acute and chronic respiratory failure with hypercapnia; I48.0 Paroxysmal atrial fibrillation; G62.9 Polyneuropathy, unspecified; J44.1 Chronic obstructive pulmonary disease with (acute) exacerbation; F17.210 Nicotine dependence, cigarettes, uncomplicated; E78.5 Hyperlipidemia, unspecified; I12.9 Hypertensive chronic kidney disease with stage 1 through stage 4 chronic kidney disease, or unspecified chronic kidney disease; I50.33 Acute on chronic diastolic (congestive) heart failure; G47.33 Obstructive sleep apnea (adult) (pediatric); Z86.010 Personal history of colon polyps; Z79.82 Long term (current) use of aspirin; Z85.118 Personal history of other malignant neoplasm of bronchus and lung; N18.9 Chronic kidney disease, unspecified; Z79.01 Long term (current) use of anticoagulants; M19.90 Unspecified osteoarthritis, unspecified site
CPT/HCPCS: 36600; 71010; 80048; 80061; 80076; 80307; 81003; 82550; 82553; 82803; 83605; 83735; 83880; 84443; 84484; 85025; 85027; 87040; 88305; 93005; 93306; 94640; 94660; 94760; 94761; 96374; 96375; 97110; 97116; 97162; 97165; 99291; G8978-GP; G8979-GP; G8980-GP; G8987-GO; G8988-GO; J1650; J1940; J2250; J2920; J2930; J3420

== ENCOUNTER 2016-12-14 10:25 | Inpatient (IN) | payer MEDICARE ==
--- NOTE | ~2016-12-14 | CO ---
Unit #: [id number] #: [id number] Patient: KAVYA HUNTER [id number] [address] [address] [id number] I MR#: [id number] NAME: KAVYA HUNTER. ROOM: 340 Age: 71 Sex: F Admission Date: 12/14/2016 : 1945 Attending Physician: Sofie Quezada M.D. Primary Care Physician: Leopoldo Wallis Jr., M.D. Requesting Physician: Jazmyn Giordano M.D. Consultation Date: 12/15/2016 CONSULTATION REPORT REASON FOR CONSULTATION Acute kidney injury. HISTORY OF PRESENT ILLNESS This very pleasant 71-year-old white female with multiple medical problems including chronic obstructive pulmonary disease on home oxygen, history of left lung cancer status post wedge resection in 2014, atrial fibrillation on Xarelto, history of hyponatremia, history of renal insufficiency for which Dr. Tim had seen her in the past. Yesterday morning the patient filled three commodes with bright red blood per rectum. She came to the emergency room and was found to have a hemoglobin of 6.1. She has been transfused two units of packed red blood cells and is now on a Protonix drip. The baseline creatinine looks to be between 1.1 and 1.3. Today it is 1.6. She is on Lasix at home. She does not take NSAIDs. PAST MEDICAL HISTORY 1. History of hyponatremia. 2. Chronic obstructive pulmonary disease on home oxygen. 3. Atrial fibrillation on Xarelto. 4. Diastolic dysfunction. 5. Chronic lower extremity edema on Lasix. 6. Renal insufficiency. PAST SURGICAL HISTORY 1. Cholecystectomy. 2. Hemorrhoidectomy. 3. Back surgery. 4. Colonoscopy. 5. Lung cancer with wedge resection in 2013. SOCIAL HISTORY The patient lives alone. She continues to smoke. She has not used alcohol. FAMILY HISTORY Negative for kidney disease. ALLERGIES Trazodone. HOME MEDICATIONS 1. Aspirin. 2. Augmentin. 3. Lasix 20 mg b.i.d. Unit #: [id number] #: [id number] Patient: KAVYA HUNTER 4. Prednisone. 5. Amiodarone. 6. Home oxygen. 7. Pantoprazole. 8. Xarelto. 9. Xanax. 10. Folic acid. 11. Neurontin. 12. ProAir. 13. Lipitor. 14. Symbicort. 15. Metoprolol. CURRENT HOSPITAL MEDICATIONS 1. Nicotine patch. 2. Neurontin 600 mg t.i.d. 3. Lipitor 10 mg daily. 4. Lopressor 25 mg t.i.d. 5. Elavil 10 mg daily. 6. Amiodarone 200 mg b.i.d. 7. Furosemide 20 mg b.i.d. 8. Xanax 0.25 mg t.i.d. p.r.n. 9. Proventil and Combivent inhaler. 10. Tylenol 650 mg p.r.n. 11. Protonix IV drip. 12. Folic acid 1 mg daily. 13. Celexa 20 mg daily. REVIEW OF SYSTEMS Currently the patient is doing better. She is tired. She denies fever, chills, nausea, vomiting, diarrhea. She denies shortness of breath or chest pain. No orthopnea. She has chronic pedal edema, but says it is not worse. No rashes. Other 13 systems reviewed and unless noted are negative. DIAGNOSTIC STUDIES LABORATORY: Glucose 81, BUN 37, creatinine 1.6, sodium 139, potassium 4, chloride 105, bicarbonate 27, calcium 8.4, CO2 27, albumin 3.3, hemoglobin 8.3 up from 6.1 yesterday, white blood cell count 13.6, platelet count 183. It looks like there was a urinalysis done 12/05/2016 that was negative for protein and negative blood. ASSESSMENT/PLAN 1. Acute kidney injury. This is most likely prerenal, related to low perfusion from her GI bleed in the setting of diuretics. She appears to have underlying chronic kidney disease as well with a baseline creatinine of 1.1 to 1.3. Urinalysis done roughly two weeks ago was negative for protein and negative for blood. Her volume status looks normal at this moment, but will go ahead and stop the Lasix. 2. History of hyponatremia. Her sodium is normal at 139. 3. Rectal bleeding. She is status post two units of packed red blood cells. Hemoglobin has improved. She is on a Protonix drip. GI is following her for possible endoscopy. Her Xarelto and aspirin have been held. 4. History of lung cancer, status post wedge resection in 2014. 5. Chronic obstructive pulmonary disease on home oxygen. 6. Tobacco abuse. 7. Anxiety disorder on Ativan. Unit #: [id number] #: [id number] Patient: KAVYA HUNTER Thank you very much for allowing me to see Kavya Hunter in consultation. Will follow the patient with serial labs and clinical evaluation. Dictated by... Vandana Diaz M.D. RONI/jena TD: 12/16/2016 14:03 JOB #: [id number] CONSULTATION REPORT Page 1 of 1 X Vandana Diaz MD X CONSULTATION REPORT
--- NOTE | ~2016-12-14 | HP ---
Unit #: [id number] #: [id number] Patient: KAVYA HUNTER [id number] [address] [address] [id number] I MR#: [id number] NAME: KAVYA HUNTER. ROOM: 52808 Age: 71 Sex: F Admission Date: 12/14/2016 : 1945 Attending Physician: Corina Giordano M.D. Primary Care Physician: Leopoldo Wallis Jr., M.D. HISTORY AND PHYSICAL CHIEF COMPLAINT Rectal bleeding. HISTORY OF PRESENT ILLNESS The patient is a 71-year-old female with a history of left lung cancer, status post wedge resection back in 2014, atrial fibrillation, on anticoagulation with Xarelto, and history of GI bleed, status post colonoscopy and polypectomy and colonoscopy and argon plasma coagulation ablation on December 04, who presented with rectal bleeding. The patient had a colonoscopy last week on Sunday, and then patient presented to the emergency room the next day with shortness of breath. The patient was discharged back home last Sunday. The patient presented today complaining of rectal bleeding and dizziness that started today. The patient was found to have a hemoglobin of 6.1 with a baseline of 8.9 to 9.8. The patient is being admitted for the above reasons. PAST MEDICAL HISTORY 1. Atrial fibrillation. 2. Anemia. 3. Gastrointestinal bleed. 4. Hypertension. 5. Lung cancer. PAST SURGICAL HISTORY 1. Cholecystectomy. 2. Hemorrhoidectomy. 3. Back surgery. 4. Colonoscopy. 5. Wedge resection. SOCIAL HISTORY The patient lives alone. She continues to smoke one pack per day. She denies alcohol or any illicit drug abuse. FAMILY HISTORY Coronary artery disease. ALLERGIES Adhesive tapes and trazodone. HOME MEDICATIONS 1. Amitriptyline. 2. Citalopram. 3. DuoNebs. Unit #: [id number] #: [id number] Patient: KAVYA HUNTER 4. Metoprolol. 5. Symbicort. 6. Lipitor. 7. ProAir. 8. Neurontin. 9. Stool softener. 10. Folic acid. 11. Xanax. 12. Xarelto. 13. Vitamin B12. 14. Pantoprazole. 15. Oxygen. 16. Amiodarone. 17. Prednisone. 18. Lasix. 19. Augmentin. 20. Aspirin. REVIEW OF SYSTEMS A 14-point review of systems was performed and only pertinent positive findings are as described above. The remaining are negative. PHYSICAL EXAMINATION GENERAL: Patient is lying in bed not in acute distress. VITAL SIGNS: Temperature 98.1, pulse 74, respirations 16, blood pressure 144/54, and saturating 100% on 2 liters nasal cannula. HEENT: Head atraumatic, normocephalic. Pupils equal, round, and reactive to light and accommodation. Extraocular movements are intact. Dry mucous membranes. NECK: Supple. LUNGS: Decreased air entry at the bases. No crackles. HEART: Regular rate and rhythm. ABDOMEN: Soft. Positive bowel sounds. EXTREMITIES: No cyanosis, no clubbing. NEUROLOGIC: Alert, awake, and oriented. No gross focal motor deficit. DIAGNOSTIC STUDIES LABORATORY: Glucose 89, BUN 47, creatinine 1.6, sodium 140, potassium 3.6, chloride 105, bicarb 28, calcium 8.2, total protein 6, albumin 3.3, AST 11, ALT 13, and alkaline phosphatase 56. INR is 1. WBC 16.7, hemoglobin 6.1, hematocrit 19.3, and platelets 210,000. Stool guaiac is positive per the ER physician. ASSESSMENT 1. Rectal bleeding. 2. Anemia. 3. Atrial fibrillation. 4. Acute kidney injury. PLAN Admit the patient to inpatient. Patient will receive two units of PRBCs. Continue the Protonix drip. Patient will be seen by GI for possible upper endoscopy or repeat colonoscopy. Will hold the Xarelto and aspirin, and further recommendations will follow. Dictated by Corina Giordano M.D. Unit #: [id number] #: [id number] Patient: KAVYA HUNTER Roberta TD: 12/14/2016 14:42 JOB #: [id number] HISTORY AND PHYSICAL Page 1 of 1 X CORINA GIORDANO MD X HISTORY AND PHYSICAL
--- NOTE | ~2016-12-14 | DS ---
Unit #: [id number] #: [id number] Patient: KAVYA HUNTER [id number] [address] [address] [id number] I MR#: [id number] NAME: KAVYA HUNTER. ROOM: 340 Age: 71 Sex: F Admission Date: 12/14/2016 : 1945 Discharge Date: 12/16/2016 Attending Physician: Sofie Quezada M.D. Primary Care Physician: Leopoldo Wallis Jr., M.D. DISCHARGE SUMMARY PRINCIPAL DIAGNOSES 1. Acute lower gastrointestinal bleed secondary to recent polypectomy in combination with anticoagulation, discharge hemoglobin 8.2. 2. Acute kidney injury on chronic kidney disease stage 3, prerenal, with perhaps some mild acute tubular necrosis. 3. Mild hypotension secondary to bleed, now resolved. 4. Paroxysmal atrial fibrillation, currently maintained in normal sinus rhythm and on anticoagulation. 5. Rapid leukocytosis. 6. Chronic hypoxic respiratory failure, maintained on three liters of oxygen per nasal cannula nocturnally. 7. Chronic obstructive pulmonary disease. 8. Tobaccoism. 9. Hyperuricemia. 10. Hypertension. 11. Obesity. 12. Obstructive sleep apnea, noncompliant with CPAP. 13. Chronic diastolic congestive heart failure with ejection fraction of 55%. 14. Mild protein malnutrition. 15. Anxiety with depression. 16. Tobaccoism. CONSULTANTS 1. Dr. Hickey, Gastroenterology. 2. Dr. Tim, Nephrology. PROCEDURES None. CLINICAL HISTORY AND HOSPITAL COURSE Ms. Hunter is a 71-year-old female who presented to the emergency department for rectal bleeding. Patient had recently undergone colonoscopy on December 04 with polypectomy. She had been reinitiated on her Xarelto and subsequently developed a lower GI bleed with associated dizziness. The patient was found to have a hemoglobin of 6.1 and was subsequently admitted. The patient underwent transfusion of two units of packed red blood cells. Since that time, hemoglobin has remained stable in the low 8s. She has not had any recurrent lower GI bleed. At this point, the plan is to hold anticoagulation for another 10 days until followup with Dr. Hickey as an outpatient. I will note, patient did have an associated leukocytosis, but infectious workup has been negative. I suspect this is likely reactive. Unit #: [id number] #: [id number] Patient: KAVYA HUNTER Patient was also found to have an elevated creatinine of 1.6, up from a baseline of approximately 1.2. Nephrotoxic medications were discontinued. At this point, we will hold Lasix for a few days, and she will have a followup BMP done next week with the results faxed to Dr. Tim. Patient's other chronic conditions remained stable, and she will be discharged home later today. DISCHARGE CONDITION Stable. DISCHARGE STATUS Discharge to home with home health. DISCHARGE MEDICATIONS 1. ProAir HFA 2 puffs every 4 hours p.r.n. for shortness of breath. 2. Symbicort 160/4.5 mcg 2 puffs b.i.d. 3. DuoNeb nebulizer treatments 3 mL t.i.d. p.r.n. for shortness of breath. 4. Amiodarone 200 mg b.i.d. 5. Xarelto 15 mg p.o. daily to be reinitiated on December 26, 2016. 6. Neurontin 600 mg t.i.d. 7. Amitriptyline 10 mg at bedtime. 8. Celexa 20 mg daily. 9. Alprazolam 0.25 mg p.o. t.i.d. p.r.n. for anxiety. 10. Metoprolol tartrate 25 mg t.i.d. 11. Docusate 50 mg daily p.r.n. for constipation. 12. Oxygen at 2.5 to 3 L per nasal cannula at bedtime. 13. Lasix 20 mg p.o. b.i.d. to be reinitiated on December 18, 2016. 14. Lipitor 10 mg at bedtime. 15. Aspirin 81 mg p.o. daily to be reinitiated on December 26, 2016. 16. Pantoprazole 40 mg b.i.d. 17. Folic acid 1 mg daily. 18. Vitamin B12 IM weekly per prior dosing per PCP. DISCHARGE INSTRUCTIONS 1. Patient is instructed to follow a heart-healthy diet. 2. She can increase her activity as tolerated. 3. She is to be compliant with oxygen. FOLLOWUP 1. Patient needs followup BMP and CBC on December 21, 2016, with results faxed to Dr. Tim. 2. She should follow up with her primary care provider, Dr. Wallis, in one week. Time spent on discharge 33 minutes. Dictated by... Sofie Quezada M.D. GERMAINE/sadaf TD: 12/18/2016 21:46 JOB #: [id number] Unit #: [id number] #: [id number] Patient: KAVYA HUNTER DISCHARGE SUMMARY Page 1 of 1 X Sofie Quezada MD X DISCHARGE SUMMARY
--- NOTE | ~2016-12-14 | CO ---
Unit #: [id number] #: [id number] Patient: KAVYA HUNTER [id number] [address] [address] [id number] I MR#: [id number] NAME: KAVYA HUNTER. ROOM: 340 Age: 71 Sex: F Admission Date: 12/14/2016 : 1945 Attending Physician: Sofie Quezada M.D. Primary Care Physician: Leopoldo Wallis Jr., M.D. Consultation Date: 12/14/2016 CONSULTATION REPORT ATTENDING PHYSICIAN Jazmyn Giordano M.D. REASON FOR CONSULTATION Lower GI bleed. HISTORY Ms. Hunter underwent a colonoscopy and polypectomy a week ago. She was fine at home until she started having bright red blood per rectum. The patient has been started back on Xarelto as a result of paroxysmal atrial fibrillation. She has had significant sized polyps removed more than a week ago. There is also history of recent admission with acute respiratory failure not requiring ventilation. Her admission hemoglobin was 6.1 and baseline hemoglobin was 9-9.8. PAST MEDICAL HISTORY 1. History of paroxysmal atrial fibrillation. 2. History of hypertension. 3. History of lung cancer. PAST SURGICAL HISTORY 1. Cholecystectomy. 2. Hemorrhoidectomy. 3. Back surgery. SOCIAL HISTORY The patient continued to smoke a pack of cigarettes daily. Does not drink alcohol. Lives at home by herself. FAMILY HISTORY Significant for coronary artery disease. No family history of colon, pancreatic cancer, or liver disease. MEDICATIONS Medications at home included: 1. Celexa. 2. Cardizem. 3. Lasix. 4. Augmentin. 5. Lopressor. 6. ProAir. 7. Symbicort. 8. Xarelto. Unit #: [id number] #: [id number] Patient: KAVYA HUNTER 9. Amitriptyline. 10. Lipitor. 11. Xanax. 12. Albuterol. ALLERGIES Trazodone and adhesive tape. REVIEW OF SYSTEMS Detailed review of organ systems reveals presence of fatigue and weakness as a result of anemia. No history of fever, chills, or rigors. No history of headache, seizures. There is history of near syncope. No history of cough, expectoration, or hemoptysis. No history of dysuria, hematuria, or pyuria. No history of focal seizures, extremity weakness. PHYSICAL EXAMINATION GENERAL: On examination, she is awake, alert, and oriented and is getting packed cell transfusion. VITAL SIGNS: Her vital signs are stable with a temperature of 98. Pulse is 96 per minute and regular, respiratory rate is 18, blood pressure is 158/57. She weighs 190 pounds, which is similar to her baseline weight. HEENT: She has moderate pallor, there being no icterus or lymphadenopathy, grade 1 pitting peripheral edema. CARDIOVASCULAR: Normal heart sounds. No murmurs. LUNGS: Auscultation of the lungs reveal . ABDOMEN: Soft, obese, nontender. Liver and spleen are not palpable. Bowel sounds normal. DIAGNOSTIC STUDIES LABORATORY: Lab evaluation shows an INR of 1. Serum chemistry shows a BUN and creatinine of 47 and 1.6. Her baseline BUN and creatinine have been normal. Albumin is 3.3. Hemoglobin on admission was 6.1. Baseline hemoglobin is around 9. Patient is currently getting packed cell transfusion. White count 16,000, platelet count normal at 210,000. CLINICAL IMPRESSION 1. Patient most likely has delayed post polypectomy bleed on Xarelto. This should resolve spontaneously. Patient needs packed cell transfusions and with holding Xarelto at least for a week to 10 days. Considerable time was spent in speaking with the patient and her family and they were reassured. 2. Concomitant medical problems as above. Patient will be reviewed again over the next 24-48 hours. Thank you very much for asking me to see this pleasant woman. I appreciate the consult. Dictated by... Cecilio Nina/lukasz TD: 12/17/2016 10:55 JOB #: [id number] Unit #: [id number] #: [id number] Patient: KVAYA HUNTER CONSULTATION REPORT Page 1 of 1 X David Hickey MD CONSULTATION REPORT
[~2016-12-14 10:25] MED LIST changes: +AMIODARONE PO; +ASPIRIN EC81 M1 PO; +AUGMENTIN PO
[2016-12-14 11:48] LABS: BASOPHIL% 0.1 % (0-2.5); EOSINOPHIL# 0.2 X10e3 (0-0.7); EOSINOPHIL% 0.9 % (0.0-7.0); HEMATOCRIT 19.3 % (35.0-45.0); LYMPHOCYTE# 2.4 X10e3 (1.0-3.5); LYMPHOCYTE% 14.2 % (17.0-45.0); MEAN CORPUSCULAR HGB CONC 31.5 g/dL (30-36); MEAN PLATELET VOLUME 8.5 FL (6.5-11.5); MONOCYTE% 6.1 % (3.0-12.0); NEUTROPHIL# 13.1 X10e3 (1.5-7.1); NEUTROPHIL% 78.7 % (40-75); PLATELET COUNT 210 X10e3 (140-420); WHITE BLOOD COUNT 16.7 X10e3 (4.0-10.5)
[2016-12-14 11:58] LABS: DIFF IND YES; HEMOGLOBIN 6.1 gm/dL (12.0-16.0); PARTIAL THROMBOPLASTIN TIME 23.1 SECONDS (23.5-31.3)
[2016-12-14 12:09] LABS: ALBUMIN SERUM 3.3 g/dL (3.5-5.0); ALKALINE PHOSPHATASE 56 U/L (32-92); ALT (SGPT) 13 U/L (10-40); AST (SGOT) 11 U/L (10-42); BILIRUBIN,TOTAL 0.5 mg/dL (0.2-2.0); BLOOD UREA NITROGEN 47 mg/dL (9-23); BUN/CREATININE RATIO 29.37; CALCIUM SERUM 8.2 mg/dL (8.4-10.2); CARBON DIOXIDE 28 mmol/L (22-31); CHLORIDE 105 mmol/L (100-111); CREATININE SERUM 1.6 mg/dL (0.6-1.4); GLOM FILT RATE Estimated 31.9 mL/min (>60); GLUCOSE FASTING 89 mg/dL (70-110); POTASSIUM 3.6 mmol/L (3.5-5.1); SODIUM 140 mmol/L (135-145)
[2016-12-14 12:10] LABS: BILIRUBIN, DIRECT <0.1 mg/dL (0.0-0.2); BILIRUBIN,INDIRECT 0.4 mg/dL (0.0-0.9)
[2016-12-14 12:24] LABS: HYPOCHROMIA MOD; PLATELET ESTIMATE NORMAL (NORMAL)
[2016-12-14 12:25] LABS: ANISOCYTOSIS MOD; SCHISTOCYTES PRESENT
[2016-12-15 08:55] LABS: BASOPHIL# 0.2 X10e3 (0-0.3); BASOPHIL% 1.2 % (0-2.5); EOSINOPHIL# 0.1 X10e3 (0-0.7); EOSINOPHIL% 0.8 % (0.0-7.0); HEMATOCRIT 26.2 % (35.0-45.0); LYMPHOCYTE# 4.4 X10e3 (1.0-3.5); LYMPHOCYTE% 32.4 % (17.0-45.0); MEAN CELL VOLUME 89.9 FL (83-96); MEAN CORPUSCULAR HEMOGLOBIN 29.6 PG (28-34); MEAN CORPUSCULAR HGB CONC 32.9 g/dL (30-36); MEAN PLATELET VOLUME 8.6 FL (6.5-11.5); MONOCYTE% 7.5 % (3.0-12.0); NEUTROPHIL# 7.9 X10e3 (1.5-7.1); NEUTROPHIL% 58.1 % (40-75); PLATELET COUNT 183 X10e3 (140-420); RED BLOOD COUNT 2.91 X10e (3.90-5.30); RED CELL DISTRIBUTION WIDTH 16.5 % (11.0-15.5); WHITE BLOOD COUNT 13.6 X10e3 (4.0-10.5)
[2016-12-15 08:57] LABS: HEMOGLOBIN 8.6 gm/dL (12.0-16.0)
[2016-12-15 08:58] LABS: DIFF IND NO
[2016-12-15 09:27] LABS: BUN/CREATININE RATIO 23.12; CALCIUM SERUM 8.4 mg/dL (8.4-10.2); CREATININE SERUM 1.6 mg/dL (0.6-1.4); GLOM FILT RATE Estimated 31.9 mL/min (>60)
[2016-12-15 16:58] LABS: HEMATOCRIT 25.4 % (35.0-45.0); HEMOGLOBIN 8.3 gm/dL (12.0-16.0)
[2016-12-15 18:31] LABS: URINE SOURCE CLEAN CATCH
[2016-12-15 18:34] LABS: URINE APPEARANCE CLEAR; URINE BILIRUBIN NEG (NEG); URINE BLOOD 2+ (NEG); URINE COLOR YELLOW; URINE GLUCOSE NEG (NEG); URINE KETONE NEG (NEG); URINE LEUKOCYTE ESTERASE NEG (NEG); URINE NITRATE NEG (NEG); URINE PH 5.5 (5-8); URINE PROTEIN NEG (NEG); URINE SPECIFIC GRAVITY 1.009 (1.003-1.035); URINE UROBILINOGEN 0.2 MG/DL (NEG)
[2016-12-15 18:37] LABS: CULTURE INDICATED? NO; URBCS1 AUWI 0-2 /[HPF] (0-2); URINE BACTERIA AUWI NEG (NEGATIVE); URINE SQUAMOUS EPITHELIAL CELL NONE SEEN /[HPF]; UWBCS1 AUWI 0-2 (0-5)
[2016-12-16 10:21] LABS: HEMATOCRIT 25.8 % (35.0-45.0); HEMOGLOBIN 8.2 gm/dL (12.0-16.0); MEAN CELL VOLUME 92.3 FL (83-96); MEAN CORPUSCULAR HEMOGLOBIN 29.4 PG (28-34); MEAN CORPUSCULAR HGB CONC 31.8 g/dL (30-36); MEAN PLATELET VOLUME 8.8 FL (6.5-11.5); RED BLOOD COUNT 2.8 X10e (3.90-5.30); WHITE BLOOD COUNT 14.2 X10e3 (4.0-10.5)
[2016-12-16 10:44] LABS: BUN/CREATININE RATIO 19.37; CALCIUM SERUM 8.3 mg/dL (8.4-10.2); CREATININE SERUM 1.6 mg/dL (0.6-1.4); GLOM FILT RATE Estimated 31.9 mL/min (>60); MAGNESIUM 2.1 mg/dL (1.6-3.0); POTASSIUM 3.5 mmol/L (3.5-5.1)
== END 2016-12-16 18:32 | disposition home health service (06) | DRG 920 ==
LOC: CED 10:25 → CEDOF 14:00 → CED 14:13 → CEDOF 20:41 → C3A PCU 20:41
PROVIDERS: Emergency Medicine; Internal Medicine; Internal Medicine Nephrology; Nurse Practitioner
PROC: 30233N1 Transfusion of Nonautologous Red Blood Cells into Peripheral Vein, Percutaneous Approach (ICD-10-PCS; principal; 2016-12-14)
DX: K91.841 Postprocedural hemorrhage of a digestive system organ or structure following other procedure (principal); I13.0 Hypertensive heart and chronic kidney disease with heart failure and stage 1 through stage 4 chronic kidney disease, or unspecified chronic kidney disease; N17.9 Acute kidney failure, unspecified; I95.9 Hypotension, unspecified; J96.11 Chronic respiratory failure with hypoxia; I48.0 Paroxysmal atrial fibrillation; E44.1 Mild protein-calorie malnutrition; Y83.9 Surgical procedure, unspecified as the cause of abnormal reaction of the patient, or of later complication, without mention of misadventure at the time of the procedure; N18.3 Chronic kidney disease, stage 3 (moderate); J44.9 Chronic obstructive pulmonary disease, unspecified; F17.210 Nicotine dependence, cigarettes, uncomplicated; E79.0 Hyperuricemia without signs of inflammatory arthritis and tophaceous disease; E66.9 Obesity, unspecified; G47.33 Obstructive sleep apnea (adult) (pediatric); Z85.118 Personal history of other malignant neoplasm of bronchus and lung; Z82.49 Family history of ischemic heart disease and other diseases of the circulatory system; Z79.01 Long term (current) use of anticoagulants; F41.8 Other specified anxiety disorders; Z79.82 Long term (current) use of aspirin; D64.9 Anemia, unspecified
CPT/HCPCS: 80048; 80076; 81003; 83735; 84550; 85014; 85018; 85025; 85027; 85610; 85730; 86850; 86900; 86901; 86923; 94640; 94664; 94760; 99291; C9113; P9016

== ENCOUNTER 2016-12-29 08:56 | Inpatient (IN) | payer MEDICARE ==
--- NOTE | ~2016-12-29 | CT57 ---
[facility]. [facility] A Service of [facility] & [facility] RADIOLOGY TEXT RESULTS PATIENT: KAVYA HUNTER LOCATION: [facility] 321-01 : 44 UNIT #: [id number] AGE: [address]: Asael Alvarenga MD SEX: F ORDER DR: [id number] [facility] [address] [place], [place] [address] [id number] I MR#: [id number] Acc #: [id number] NAME: KAVYA HUNTER. : 1945 SEX: F STUDY DATE/TIME: 12/31/2016 UNIT: [address] ROOM: [facility] STUDY DESCRIPTION: CT Chest Wo Cont Attending Physician: Asael Alvarenga M.D. Ordering Physician: Jermain Zamraripa M.D. Primary Care Physician: Leopoldo Wallis Jr., M.D. MEDICAL IMAGING REPORT This report is preliminary unless electronic signature is present EXAM Chest CT 12/30 at 22:04 INDICATIONS Shortness of air since 12/29/2016. Wheezing. History of lung cancer. TECHNIQUE Axial images were obtained through the chest without contrast. Multiplanar reformats were obtained. Comparison made 09/28/2016. The CT exam was performed with one or more of the following radiation dose reduction techniques: automatic exposure control, adjustment of mA and/or kV according to patient size, and iterative reconstruction. FINDINGS There is atherosclerotic disease and coronary artery disease. There is a trace amount of left pleural fluid. No pericardial effusion. No adenopathy. There is emphysema. Postoperative changes are noted in the left upper lobe. There is new consolidation in the posterior dependent right lower lobe which may simply reflect some atelectasis. There is stable irregular opacity in the posterior left lower lobe abutting the pleura. It measures about 2 cm in greatest dimension and is not significantly changed. Attention on followup recommended. Previous seen right lower lobe consolidation with air bronchograms has nearly completely resolved. There are no suspicious osseous lesions. Upper abdomen demonstrates cholecystectomy and atherosclerotic disease. IMPRESSION 1. Atherosclerotic disease and coronary artery disease. 2. Postop changes left lung. 3. Near complete resolution of previously described right lower lobe STS. [facility] A Service of [facility] & [facility] RADIOLOGY TEXT RESULTS PATIENT: KAVYA HUNTER LOCATION: [facility] 321-01 : 43 UNIT #: [id number] AGE: [address]: Asael Alvarenga MD SEX: F ORDER DR: consolidations. There is new dependent consolidation in the inferior right lower lobe which is probably some atelectasis. Attention on followup recommended. 4. New trace left pleural effusion. 5. Stable pulmonary parenchymal density in the posterior left lower lobe. Attention on followup recommended. Dictated by... Bib Leo Jr., M.D. THIS IS AN ELECTRONICALLY VERIFIED REPORT Bib Leo Jr., M.D. at 12/31/2016 9:24 PM ROMARIO/elmira TD: 12/31/2016 09:56 JOB #: [id number] MEDICAL IMAGING REPORT Page 1 of 1 COPY
--- NOTE | ~2016-12-29 | CR72 ---
[facility] A Service of [facility] RADIOLOGY TEXT RESULTS PATIENT: KAVYA HUNTER LOCATION: [facility] : 44 UNIT #: [id number] AGE: [address]: Debbie Sampson MD SEX: F ORDER DR: [id number] [facility] [address] [place], [place] [address] [id number] MR#: [id number] Acc #: [id number] NAME: KAVYA HUNTER : 1945 SEX: F STUDY DATE/TIME: 12/29/2016 09:07 UNIT: [facility] ROOM: STUDY DESCRIPTION: CR Chest Single View Portable Attending Physician: Debbie Sampson M.D. Ordering Physician: Debbie Sampson M.D. Primary Care Physician: Leopoldo Wallis Jr., M.D. MEDICAL IMAGING REPORT This report is preliminary unless electronic signature is present EXAM Chest portable 12/29/2016 09:07 hours HISTORY A 71-year-old woman with history of lung carcinoma, hypertension, complaining of shortness of air today. COMPARISON 12/05/2016 FINDINGS Portable upright chest demonstrates linear suture line in the left upper lung is consistent with prior wedge resection, unchanged. There is stable mild cardiomegaly. There is slightly increased interstitial markings diffusely similar to 12/05/2016 with chronic blunting of the left costophrenic sulcus likely pleural thickening. No definite effusion. IMPRESSION 1. Stable suture line in the left upper lung consistent with wedge resection. 2. Stable mild cardiomegaly. There are slightly increased interstitial markings diffusely in the lungs similar to 12/05/2016. This could represent chronic change versus recurrent mild interstitial edema. 3. There is chronic blunting of the left costophrenic sulcus. This is likely chronic pleural thickening given the history of left thoracotomy. Dictated by... Prudence Crum M.D. THIS IS AN ELECTRONICALLY VERIFIED REPORT Prudence Crum M.D. at 12/29/2016 12:14 PM [facility] A Service of [facility] & [facility] RADIOLOGY TEXT RESULTS PATIENT: KAVYA HUNTER LOCATION: [facility] : 44 UNIT #: [id number] AGE: [address]: Debbie Sampson MD SEX: F ORDER DR: Karla TD: 12/29/2016 11:46 JOB #: [id number] MEDICAL IMAGING REPORT Page 1 of 1 COPY
--- NOTE | ~2016-12-29 | HP ---
Unit #: [id number] #: [id number] Patient: KAVYA HUNTER [id number] [address] [address] [id number] I MR#: [id number] NAME: KAVYA HUNTER. ROOM: 321 Age: 71 Sex: F Admission Date: 12/29/2016 : 1945 Attending Physician: Corina Giordano M.D. Primary Care Physician: Leopoldo Wallis Jr., M.D. HISTORY AND PHYSICAL CHIEF COMPLAINT Shortness of breath. HISTORY OF PRESENT ILLNESS The patient is a 71-year-old female with a history of left lung cancer, status post wedge resection back in 2014, atrial fibrillation on anticoagulation with Xarelto, history of GI bleed, status post colonoscopy, polypectomy and rectal bleeding. The patient was brought to the emergency room complaining of shortness of breath. The patient stated she has been having shortness of breath for two days. The patient said the shortness of breath is gradually worsening. The patient continues to smoke cigarettes. Her last smoke was last night at 7:30 p.m. The patient is being admitted for the above reasons. PAST MEDICAL HISTORY 1. Atrial fibrillation. 2. Anemia. 3. GI bleed. 4. Hypertension. 5. Lung cancer. PAST SURGICAL HISTORY 1. Cholecystectomy. 2. Hemorrhoidectomy. 3. Back surgery. 4. Colonoscopy. 5. Wedge resection. SOCIAL HISTORY The patient lives alone. She continues to smoke one pack per day. Denies alcohol and illicit drug abuse. FAMILY HISTORY Positive for coronary artery disease. ALLERGIES Adhesive tape and trazodone. HOME MEDICATIONS 1. Amitriptyline. 2. Celexa. 3. Duo-Nebs. 4. Metoprolol. 5. Symbicort. Unit #: [id number] #: [id number] Patient: KAVYA HUNTER 6. Lipitor. 7. ProAir. 8. Neurontin. 9. Stool softener. 10. Folic acid. 11. Xanax. 12. Xarelto. 13. Cyanocobalamin. 14. Pantoprazole. 15. Oxygen. 16. Amiodarone. 17. Lasix. 18. Aspirin. REVIEW OF SYSTEMS Fourteen point review of systems performed and only pertinent positive findings are described above. The remaining are negative. PHYSICAL EXAMINATION GENERAL: The patient is lying on the bed, not in acute distress. VITALS: Temperature is 98.7, pulse 120, respiratory rate 32, blood pressure 119/67, saturating 100% on BiPAP. HEENT: Head atraumatic, normocephalic. Pupils equal, round and reactive to light and accommodation. Extraocular movements are intact. NECK: Supple. LUNGS: Decreased air entry at the bases. Positive for wheezing. HEART: Regular rate and rhythm. ABDOMEN: Soft. Positive bowel sounds. EXTREMITIES: No cyanosis or clubbing. NEUROLOGIC: Alert, awake and oriented. No gross focal motor deficits. SKIN: The patient had skin ecchymosis from the Xarelto. DIAGNOSTIC STUDIES IMAGING: Chest x-ray shows stable suture line in the left upper lung, consistent with a wedge resection. Stable mild cardiomegaly. There are slightly increased interstitial markings diffusely in the lungs, similar to 12/05/2016. There is chronic blunting of the left costophrenic sulcus. LABORATORY: BNP 318. INR is 1. ABG shows 7.37, pCO2 47, pO2 180, bicarb 27, oxygen saturation 99.3. Sodium 139, potassium 5, chloride 107, bicarb 27, glucose 149, BUN 15, creatinine 1.3, AST 20, ALT 21, troponin less than 0.05. White blood cell count 8.6, hemoglobin 8.2, hematocrit 25.7, platelets 323. ASSESSMENT 1. Acute on chronic respiratory failure. 2. Chronic obstructive pulmonary disease exacerbation. 3. Obstructive sleep apnea. 4. Anemia. PLAN Admit to inpatient. The patient will be admitted to the telemetry. Continue with Oxymizer 6-10 liters to titrate to saturation 90%-92%. Continue Solu-Medrol 80 mg IV q.8 h. Doxycycline 100 mg p.o. b.i.d. Duo-Nebs q.4 h. Further recommendations will follow. Unit #: [id number] #: [id number] Patient: KAVYA HUNTER Dictated by Cecilio Manley TD: 12/29/2016 15:43 JOB #: [id number] HISTORY AND PHYSICAL Page 1 of 1 X CORINA GIORDANO MD HISTORY AND PHYSICAL
--- NOTE | ~2016-12-29 | EKG ---
PATIENT: KAVYA HUNTER UNIT #: [id number] Ventricular Rate: 96 BPM Atrial Rate: 96 BPM P-R Interval: 174 ms QRS Duration: 76 ms Q-T Interval: 364 ms QTC Calculation(Bezet): 459 ms P [place]: 79 degrees Calculated R [place]: 23 degrees Calculated T [place]: 72 degrees Diagnosis Line: Normal sinus rhythm Diagnosis Line: Nonspecific ST and T wave abnormality Diagnosis Line: Abnormal ECG Diagnosis Line: When compared with ECG of 07-DEC-2016 07:39, Diagnosis Line: Vent. rate has increased BY 36 BPM Diagnosis Line: T wave inversion no longer evident in Anterior Diagnosis Line: leads Diagnosis Line: QT has shortened Diagnosis Line: Confirmed by TARAS EVANS MD ([id number]) on Diagnosis Line: 12/29/2016 4:20:23 PM INTERPRETING MD: SAMANTHA
--- NOTE | ~2016-12-29 | DS ---
Unit #: [id number] #: [id number] Patient: KAVYA HUNTER [id number] [address] [place], [place] [address] [id number] I MR#: [id number] NAME: KAVYA HUNTER. ROOM: 321 Age: 71 Sex: F Admission Date: 12/29/2016 : 1945 Discharge Date: Attending Physician: Asael Alvarenga M.D. Primary Care Physician: Leopoldo Wallis Jr., M.D. DISCHARGE SUMMARY DIAGNOSIS ON ADMISSION Acute exacerbation of COPD. DIAGNOSES ON DISCHARGE 1. Acute on chronic respiratory failure, improved. 2. Acute exacerbation of chronic obstructive pulmonary disease. 3. Obstructive sleep apnea syndrome. Patient refusing treatment. 4. Continued tobacco abuse. 5. Right lower lobe atelectasis. 6. History of left upper lobe non-small cell lung carcinoma status post resection. 7. Paroxysmal atrial fibrillation. 8. Hyperlipidemia. 9. Type 2 diabetes mellitus. 10. Anemia, status post blood transfusion. 11. History of GI bleeding. CONSULTATIONS Dr. Bhakta in pulmonary consultation. DIAGNOSTIC STUDIES IMAGING: Patient had a CT scan of the chest done, which revealed postop changes. There was near complete resolution of previously described right lower lobe consolidations. There is new dependent consolidation in the inferior right lower lobe, which is probably some atelectasis. There is new trace left pleural effusion present. LABS: The patient's creatinine is 1.4, sodium is 137, potassium is 4. WBC is 8.6, hemoglobin 8.1, platelet count 263. HOSPITAL COURSE This 71-year-old female was admitted to the hospital with shortness of air. Details are as per admission H and P. Acute on chronic respiratory failure. It was secondary to COPD exacerbation, atelectasis. Patient responded well to treatment and is doing much better. Acute exacerbation of COPD. Patient was treated with IV Solu-Medrol and is responding very well. Continued tobacco abuse. Patient was encouraged to quit smoking. Obstructive sleep apnea syndrome. Patient is refusing treatment. Unit #: [id number] #: [id number] Patient: KAVYA HUNTER Anemia. Patient received a blood transfusion. She did not want to have any GI workup done, as the patient stated that she had scopes done in the past. She was advised to follow up with Dr. David Hickey. Patient had an endoscopy done in June 2016, which revealed distal benign esophageal stricture, which was dilated. There was moderate erosive diffuse gastritis present and moderate duodenitis present. It was done on June 28, 2016. The patient does not want any colonoscopy at this point. PHYSICAL EXAMINATION GENERAL: Today, the patient is comfortable, is anxious to go home. HEENT: Examination revealed no conjunctival congestion. Sclera is nonicteric. NECK: Neck is supple. Trachea is central. RESPIRATORY: Examination revealed decreased breath sounds bilaterally. There are occasional wheezes. HEART: Regular rate and rhythm. S1, S2. ABDOMEN: Abdomen is soft, obese, nontender. EXTREMITIES: Extremities revealed trace pedal edema. NEUROLOGIC: The patient is alert to person, place and time. Strength is 4+ bilaterally. SKIN: Skin is warm and dry. VITAL SIGNS: Patient's vital signs today reveal temperature of 97.9, pulse 59 per minute, respiratory rate 18 per minute and blood pressure 136/65. RECOMMENDATIONS ON DISCHARGE 1. Condition is stable. 2. Activity is as tolerated. DISCHARGE MEDICATIONS 1. Amiodarone 200 mg p.o. b.i.d. 2. DuoNeb Mini-Neb treatment q.4 hours scheduled. 3. Symbicort 160/4.5 mcg 2 inhalation b.i.d. 4. Albuterol MDI 2 puffs q.4 hours p.r.n. 5. Xarelto 15 mg p.o. every morning. 6. Neurontin 600 mg p.o. t.i.d. 7. Amitriptyline 10 mg p.o. q.h.s. 8. Celexa 20 mg p.o. daily. 9. Xanax 0.25 mg p.o. t.i.d. 10. Lopressor 25 mg p.o. t.i.d. 11. Colace 50 mg p.o. daily as needed. 12. Oxygen. 13. Lasix 20 mg p.o. b.i.d. 14. Lipitor 10 mg p.o. q.h.s. 15. Aspirin 81 mg p.o. daily. 16. Protonix 40 mg p.o. b.i.d. 17. Folic acid 1 mg p.o. daily. 18. Vitamin B12 injection 1 mg monthly. 19. Doxycycline 100 mg p.o. b.i.d. for 3 days. 20. Prednisone 10 mg as recommended by Dr. Bhakta. NOTE: The plan was discussed with Dr. Bhakta, and the plan was also discussed with staff. Dictated by... Unit #: [id number] #: [id number] Patient: KAVYA HUNTER M.D. MB/db TD: 01/02/2017 13:54 JOB #: [id number] DISCHARGE SUMMARY Page 1 of 1 X Asael Alvarenga MD X DISCHARGE SUMMARY
--- NOTE | ~2016-12-29 | CR63 ---
[facility] A Service of [facility] & [facility] RADIOLOGY TEXT RESULTS PATIENT: KAVYA HUNTER LOCATION: [facility] 321- : 44 UNIT #: [id number] AGE: [address]: Asael Alvarenga MD SEX: F ORDER DR: [id number] [facility] [address] [place], [place] [address] [id number] I MR#: [id number] Acc #: [id number] NAME: KAVYA HUNTER : 1945 SEX: F STUDY DATE/TIME: 12/30/2016 21:45 UNIT: [address] ROOM: [facility] STUDY DESCRIPTION: CR Chest 2 View Attending Physician: Asael Alvarenga M.D. Ordering Physician: Asael Alvarenga M.D. Primary Care Physician: Leopoldo Wallis Jr., M.D. MEDICAL IMAGING REPORT This report is preliminary unless electronic signature is present EXAM Chest x-ray 12/30/2016 2145 hours INDICATIONS Shortness of air and hemoptysis that started yesterday. History of lung cancer. FINDINGS PA and lateral views of the chest compared with 12/29/2016. Cardiomegaly is stable. There is atherosclerotic disease in the aorta. Postop changes noted in the left hemithorax. No acute infiltrates are seen. No pneumothorax. IMPRESSION Stable cardiomegaly with postop change in the left lung. No acute findings in the chest. Dictated by... Bib Leo Jr., M.D. THIS IS AN ELECTRONICALLY VERIFIED REPORT Bib Leo Jr., M.D. at 12/31/2016 6:08 AM ROMARIO/torey TD: 12/31/2016 04:21 JOB #: [id number] MEDICAL IMAGING REPORT Page 1 of 1 COPY
[2016-12-29 09:31] LABS: BASOPHIL% 0.4 % (0-2.5); EOSINOPHIL# 0.2 X10e3 (0-0.7); EOSINOPHIL% 2.1 % (0.0-7.0); HEMATOCRIT 25.7 % (35.0-45.0); HEMOGLOBIN 8.2 gm/dL (12.0-16.0); LYMPHOCYTE# 2.4 X10e3 (1.0-3.5); LYMPHOCYTE% 27.5 % (17.0-45.0); MEAN CELL VOLUME 91.1 FL (83-96); MEAN CORPUSCULAR HEMOGLOBIN 29.2 PG (28-34); MEAN PLATELET VOLUME 7.5 FL (6.5-11.5); MONOCYTE# 0.5 X10e3 (0-1.0); MONOCYTE% 6.4 % (3.0-12.0); NEUTROPHIL# 5.5 X10e3 (1.5-7.1); NEUTROPHIL% 63.6 % (40-75); PLATELET COUNT 323 X10e3 (140-420); RED BLOOD COUNT 2.82 X10e (3.90-5.30); RED CELL DISTRIBUTION WIDTH 16.5 % (11.0-15.5); WHITE BLOOD COUNT 8.6 X10e3 (4.0-10.5)
[2016-12-29 09:35] LABS: DIFF IND NO
[2016-12-29 09:41] LABS: POC - CKMB <1.0 ng/mL (0.0-7.9); POC - TROPONIN <0.05 ng/mL (<=0.05)
[2016-12-29 10:03] LABS: ALBUMIN SERUM 3.5 g/dL (3.5-5.0); ALKALINE PHOSPHATASE 83 U/L (32-92); ALT (SGPT) 21 U/L (10-40); AST (SGOT) 20 U/L (10-42); BILIRUBIN,TOTAL 0.3 mg/dL (0.2-2.0); BLOOD UREA NITROGEN 15 mg/dL (9-23); BUN/CREATININE RATIO 11.53; CALCIUM SERUM 8.7 mg/dL (8.4-10.2); CARBON DIOXIDE 27 mmol/L (22-31); CHLORIDE 107 mmol/L (100-111); CREATININE SERUM 1.3 mg/dL (0.6-1.4); GLUCOSE FASTING 149 mg/dL (70-110); PROTEIN TOTAL SERUM 6.9 g/dL (6.0-8.3); SODIUM 139 mmol/L (135-145)
[2016-12-29 10:06] LABS: BILIRUBIN, DIRECT <0.1 mg/dL (0.0-0.2); BILIRUBIN,INDIRECT 0.2 mg/dL (0.0-0.9)
[2016-12-29 10:13] LABS: ARTERIAL BLOOD GAS pH 7.371 (7.350-7.450)
[2016-12-29 10:14] LABS: ARTERIAL BLD GAS O2 SATURATION 99.3 % (90.0-100.0); ARTERIAL BLOOD GAS ALLEN TEST NORMAL; ARTERIAL BLOOD GAS ART SITE LEFT RADIAL; ARTERIAL BLOOD GAS CARBOXY HB 1.1 %sat (0.0-9.0); ARTERIAL BLOOD GAS HCO3 27.6 mmol/L; ARTERIAL BLOOD GAS MET HB 1.2 %sat (0.0-2.0); ARTERIAL BLOOD GAS PCO2 47.6 mmHg (35.0-45.0); ARTERIAL DRAW? YES
[2016-12-29 10:49] LABS: POC - CKMB 1.3 ng/mL (0.0-7.9); POC - TROPONIN <0.05 ng/mL (<=0.05)
[2016-12-29 10:58] LABS: PROTHROMBIN TIME (PATIENT) 10.7 SECONDS (10.0-11.7)
[2016-12-30 08:57] LABS: BASOPHIL% 0.1 % (0-2.5); HEMATOCRIT 21.8 % (35.0-45.0); LYMPHOCYTE# 0.7 X10e3 (1.0-3.5); LYMPHOCYTE% 6.5 % (17.0-45.0); MEAN CELL VOLUME 89.4 FL (83-96); MEAN CORPUSCULAR HEMOGLOBIN 28.8 PG (28-34); MEAN CORPUSCULAR HGB CONC 32.2 g/dL (30-36); MEAN PLATELET VOLUME 7.6 FL (6.5-11.5); MONOCYTE# 0.2 X10e3 (0-1.0); MONOCYTE% 2.3 % (3.0-12.0); NEUTROPHIL# 9.4 X10e3 (1.5-7.1); NEUTROPHIL% 91.1 % (40-75); PLATELET COUNT 251 X10e3 (140-420); RED BLOOD COUNT 2.44 X10e (3.90-5.30); RED CELL DISTRIBUTION WIDTH 16.5 % (11.0-15.5); WHITE BLOOD COUNT 10.3 X10e3 (4.0-10.5)
[2016-12-30 09:00] LABS: DIFF IND YES
[2016-12-30 09:03] LABS: INR 1.1; PROTHROMBIN TIME (PATIENT) 11.9 SECONDS (10.0-11.7)
[2016-12-30 09:11] LABS: BUN/CREATININE RATIO 21.53; CREATININE SERUM 1.3 mg/dL (0.6-1.4); POTASSIUM 4.6 mmol/L (3.5-5.1)
[2016-12-30 10:05] LABS: PLATELET ESTIMATE NORMAL (NORMAL); RBC NORMAL YES
[2016-12-30 10:08] LABS: ANISOCYTOSIS MOD; HYPOCHROMIA SL
[2016-12-31 06:22] LABS: HEMATOCRIT 25.2 % (35.0-45.0); HEMOGLOBIN 8.1 gm/dL (12.0-16.0); MEAN CELL VOLUME 89.6 FL (83-96); MEAN CORPUSCULAR HEMOGLOBIN 28.7 PG (28-34); MEAN PLATELET VOLUME 8.3 FL (6.5-11.5); RED BLOOD COUNT 2.81 X10e (3.90-5.30); RED CELL DISTRIBUTION WIDTH 16.6 % (11.0-15.5); WHITE BLOOD COUNT 10.7 X10e3 (4.0-10.5)
[2016-12-31 07:01] LABS: BUN/CREATININE RATIO 31.66; CALCIUM SERUM 8.8 mg/dL (8.4-10.2); CREATININE SERUM 1.2 mg/dL (0.6-1.4); GLOM FILT RATE Estimated 45.1 mL/min (>60); POTASSIUM 4.2 mmol/L (3.5-5.1)
[2017-01-01 05:47] LABS: HEMATOCRIT 24.9 % (35.0-45.0); HEMOGLOBIN 8.1 gm/dL (12.0-16.0); MEAN CELL VOLUME 88.1 FL (83-96); MEAN CORPUSCULAR HEMOGLOBIN 28.6 PG (28-34); MEAN CORPUSCULAR HGB CONC 32.5 g/dL (30-36); MEAN PLATELET VOLUME 7.7 FL (6.5-11.5); RED BLOOD COUNT 2.82 X10e (3.90-5.30); RED CELL DISTRIBUTION WIDTH 16.3 % (11.0-15.5); WHITE BLOOD COUNT 8.6 X10e3 (4.0-10.5)
[2017-01-01 06:20] LABS: BUN/CREATININE RATIO 34.28; CALCIUM SERUM 8.6 mg/dL (8.4-10.2); CREATININE SERUM 1.4 mg/dL (0.6-1.4); GLOM FILT RATE Estimated 37.4 mL/min (>60)
[2017-01-02] MEDS ORDERED: PREDNISONE PO (15:01)
[2017-01-02] MEDS ORDERED: DOXYCYCLINE HY100 M3 PO (15:03)
== END 2017-01-02 16:20 | DRG 189 ==
LOC: CED 08:56 → C3A PCU 12:20 → CEDOF 12:20 → CED 12:28 → CEDOF 15:30 → C3A PCU 15:30
PROVIDERS: Emergency Medicine; Internal Medicine
PROC: 30233N1 Transfusion of Nonautologous Red Blood Cells into Peripheral Vein, Percutaneous Approach (ICD-10-PCS; principal; 2016-12-29)
DX: J96.20 Acute and chronic respiratory failure, unspecified whether with hypoxia or hypercapnia (principal); I48.0 Paroxysmal atrial fibrillation; E11.9 Type 2 diabetes mellitus without complications; J44.1 Chronic obstructive pulmonary disease with (acute) exacerbation; J98.11 Atelectasis; D64.9 Anemia, unspecified; G47.33 Obstructive sleep apnea (adult) (pediatric); F17.210 Nicotine dependence, cigarettes, uncomplicated; Z79.01 Long term (current) use of anticoagulants; E78.5 Hyperlipidemia, unspecified; Z79.82 Long term (current) use of aspirin; Z86.010 Personal history of colon polyps; Z85.118 Personal history of other malignant neoplasm of bronchus and lung; Z90.2 Acquired absence of lung [part of]
CPT/HCPCS: 36415; 36600; 51702; 71010; 71020; 71250; 80048; 80053; 80076; 82553; 82803; 83880; 84484; 85025; 85027; 85610; 86850; 86900; 86901; 86923; 93005; 94640; 94660; 94760; 96374; 96375; 97110; 97116; 97162; 97166; 97530; 97535; 99285; G8978-GP; G8979-GP; G8987-GO; G8988-GO; J1940; J2060; J2920; J2930; P9016

== ENCOUNTER 2017-01-09 06:33 | Inpatient (IN) | payer OTHER ==
--- NOTE | ~2017-01-09 | CO ---
Unit #: [id number] #: [id number] Patient: KAVYA HUNTER [id number] [address] [place], [place] [address] [id number] I MR#: [id number] NAME: KAVYA HUNTER. ROOM: 568 Age: 71 Sex: F Admission Date: 01/09/2017 : 1945 Attending Physician: Pio Mojica M.D. Primary Care Physician: Leopoldo Wallis Jr., M.D. Consultation Date: 01/09/2017 CONSULTATION REPORT DICTATED FOR Dr. David Hickey. PRIMARY CARE PHYSICIAN Dr. Leopoldo Wallis. REASON FOR CONSULTATION Anemia, possible GI bleed. HISTORY OF PRESENT ILLNESS The patient is a 71-year-old female with past medical history of lung cancer, COPD, chronic respiratory failure, obstructive sleep apnea, diastolic dysfunction, chronic kidney disease, paroxysmal atrial fibrillation, hypertension, anxiety, and depression. The patient has been admitted with acute respiratory failure, currently sedated on the ventilator. Apparently, the patient was found to be in respiratory distress by her neighbor and EMS was called. Upon admission, the patient's hemoglobin was noted to be 6.8, which is down from 8.1. Over 1 week ago, the patient was admitted here on 01/08/2017 for respiratory failure, and at that time, also had workup for possible GI bleed. It was suspected that the patient may have had delayed post polypectomy bleed as the patient had recently underwent colonoscopy and had a large polyps removed. According to the patient's family, she has been under the care of hospice at home. PAST MEDICAL HISTORY Chronic respiratory failure, COPD, hypertension, paroxysmal atrial fibrillation, obstructive sleep apnea, diastolic dysfunction, lung cancer, anxiety, depression, chronic kidney disease. PAST SURGICAL HISTORY Cholecystectomy, hemorrhoidectomy, back surgery, colonoscopy, wedge resection. SOCIAL HISTORY According to records the patient is a smoker, but no alcohol or illicit drug use. She has been under hospice care at home. FAMILY HISTORY None for colon cancer. ALLERGIES Adhesive and trazodone. Unit #: [id number] #: [id number] Patient: KAVYA HUNTER HOME MEDICATIONS Amitriptyline, citalopram, DuoNeb, metoprolol, Symbicort, Lipitor, ProAir, Neurontin, docusate, folic acid, alprazolam, amiodarone, Lasix, aspirin, and prednisone. REVIEW OF SYSTEMS Detailed review of system is unobtainable as the patient is sedated and is on a ventilator. PHYSICAL EXAMINATION GENERAL: The patient is currently intubated and sedated. VITAL SIGNS: Temperature 97.1, blood pressure 128/52, heart rate 85, respirations 24. LUNGS: Scattered rhonchi bilaterally. CARDIOVASCULAR: Regular rate and rhythm. ABDOMEN: Soft, nontender. Liver and spleen not palpable. Bowel sounds normal. DIAGNOSTIC STUDIES LABORATORY RESULTS: Complete metabolic panel notable for glucose 148, normal BUN and creatinine, potassium 3.4, albumin 3.2, AST 51, ALT 44. BNP 234. CBC notable for WBC 17.2, hemoglobin 6.8, hematocrit 21.8, and platelets 241. Urinalysis within normal limits. IMAGING STUDIES: Chest x-ray shows stable cardiomegaly with some mild infiltrate or atelectasis at the right base. CLINICAL IMPRESSION AND PLAN The patient with severe anemia, etiology is multifactorial including anemia of chronic disease, especially chronic kidney disease. The patient may also have chronic gastrointestinal blood loss as well. The patient has not had any evidence of overt gastrointestinal bleed. There is little benefit in repeating endoscopic evaluation in this patient. Recommend conservative supportive management and continue to monitor hemoglobin and transfuse as needed. Plan of care discussed in detail with the patient's family at the bedside. The patient has been discussed with Dr. Hickey. Further recommendations to follow. Thank you very much for asking us to see this patient. We appreciate the consult. Dictated by... JANET Mora/gabe TD: 01/12/2017 01:33 JOB #: [id number] CC: Leopoldo Wallis Jr, M.D. Unit #: [id number] #: [id number] Patient: KAVYA HUNTER CONSULTATION REPORT Page 1 of 1 X X CONSULTATION REPORT
--- NOTE | ~2017-01-09 | CR72 ---
[facility] A Service of [facility] & [facility] RADIOLOGY TEXT RESULTS PATIENT: KAVYA HUNTER LOCATION: [place] [address] : [birth year] UNIT #: [id number] AGE: [address]: Pio Mojica MD SEX: F ORDER DR: [id number] [facility] [address] [place], [place] [address] [id number] I MR#: [id number] Acc #: [id number] NAME: KAVYA HUNTER : 1945 SEX: F STUDY DATE/TIME: 01/10/2017 14:10 UNIT: [facility] ROOM: [facility] STUDY DESCRIPTION: CR Chest Single View Portable Attending Physician: Pio Mojica M.D. Ordering Physician: Barney Bhakta M.D. Primary Care Physician: Leopoldo Wallis Jr., M.D. MEDICAL IMAGING REPORT This report is preliminary unless electronic signature is present EXAM Portable chest INDICATIONS Followup support lines and tubes. Shortness breath since yesterday. COMPARISON STUDIES Comparison with yesterday's study. FINDINGS The right IJ central venous catheter and the endotracheal tube are stable. No new infiltrates in the lungs. Heart size stable. IMPRESSION No significant change in the appearance of the chest. Dictated by... Alejo Hoffman M.D. THIS IS AN ELECTRONICALLY VERIFIED REPORT Alejo Hoffman M.D. at 01/11/2017 7:24 PM Nicole TD: 01/10/2017 15:57 JOB #: [id number] MEDICAL IMAGING REPORT Page 1 of 1 COPY
--- NOTE | ~2017-01-09 | HP ---
Unit #: [id number] #: [id number] Patient: KAVYA HUNTER [id number] [address] [place], [place] [address] [id number] I MR#: [id number] NAME: KAVYA HUNTER. ROOM: [facility] Age: 71 Sex: F Admission Date: 01/09/2017 : 1945 Attending Physician: Neelima Burgos M.D. Primary Care Physician: Leopoldo Wallis Jr., M.D. HISTORY AND PHYSICAL CHIEF COMPLAINT Short of breath. HISTORY OF PRESENT ILLNESS The patient is a 71-year-old female with a past medical history of lung cancer, COPD, chronic respiratory failure, obstructive sleep apnea, diastolic dysfunction, chronic kidney disease, paroxysmal atrial fibrillation, hypertension, obesity, anxiety, and depression, who presented to the emergency department for evaluation of the above. History is obtained from chart review and discussion with ER staff due to the patient currently being intubated and sedated. The patient was apparently found in respiratory distress by EMS. Oxygen saturations were in the 60s. In the emergency department, she was confused and agitated. She was ultimately intubated. Chest x-ray shows increased interstitial prominence and a right-sided infiltrate. White blood cell count is 17.2 and hemoglobin 6.8. Rectal exam was Hemoccult positive per my discussion with ER staff. She was given 80 mg of Protonix, as well as vancomycin, Zosyn, and tobramycin in the emergency department. She is being admitted to [facility] for evaluation and further treatment. PAST MEDICAL HISTORY 1. Admission to [facility] December 29-2016, for acute on chronic respiratory failure and COPD. 2. Chronic respiratory failure, on three liters of oxygen per nasal cannula at night. 3. Chronic obstructive pulmonary disease followed by Dr. Bhakta. 4. Hypertension. 5. Paroxysmal atrial fibrillation. 6. Obstructive sleep apnea noncompliant with CPAP. 7. Diastolic dysfunction with an ejection fraction of 55% per record review. 8. Lung cancer, status post wedge resection. 9. Gastrointestinal bleed secondary to polypectomy in combination with anticoagulation. PAST SURGICAL HISTORY 1. Cholecystectomy. 2. Hemorrhoidectomy. 3. Back surgery. 4. Colonoscopy. 5. Wedge resection. Unit #: [id number] #: [id number] Patient: KAVYA HUNTER SOCIAL HISTORY The patient is a smoker per record review. There is no alcohol or illicit drug use. She is a Full [employer]. I am told that she is in hospice care. FAMILY HISTORY Coronary artery disease. ALLERGIES Adhesives and trazodone. HOME MEDICATIONS 1. Amitriptyline 10 mg at bedtime. 2. Citalopram 20 mg daily. 3. DuoNebs t.i.d. p.r.n. 4. Metoprolol 25 mg t.i.d. 5. Symbicort 160/4.5 at 2 puffs twice daily. 6. Lipitor 10 mg daily. 7. ProAir 2 puffs q.4 hours p.r.n. 8. Neurontin 600 mg t.i.d. 9. Docusate 50 mg daily p.r.n. 10. Folic acid 1 mg daily. 11. Alprazolam 0.25 mg t.i.d. p.r.n. 12. Amiodarone 200 mg twice daily. 13. Lasix 20 mg twice daily. 14. Aspirin 81 mg daily. 15. Prednisone taper. REVIEW OF SYSTEMS A complete review of systems is unobtainable from the patient due to altered mental status. PHYSICAL EXAMINATION VITAL SIGNS: Temperature is 98.2, pulse 117, and respirations 34. GENERAL: Patient is a female who is currently intubated and sedated. HEENT: Head is atraumatic. Mucous membranes are moist. NECK: Supple. Trachea is midline. CARDIOVASCULAR: Irregular. LUNGS: Scattered wheezes and rhonchi. She is currently intubated. ABDOMEN: Soft and nontender with bowel sounds present in all four quadrants. EXTREMITIES: Scattered bruises. No pedal edema. NEUROLOGIC: Patient is currently sedated. She was initially confused. PSYCHIATRIC: Unable to assess. SKIN: Skin of examined areas is warm and dry. DIAGNOSTIC STUDIES LABORATORY: Urinalysis is essentially negative. Arterial blood gas shows a pH of 7.245, PCO2 of 61.9, and PO2 of 275 on assist control with an FIO2 of 70%. Troponin is less than 0.05. Lactic acid is 1.5. INR is 1.1. Comprehensive metabolic panel notable for potassium of 3.4, glucose 148, calcium 7.9, AST and ALT 51 and 44, respectively, total protein 5.9, and albumin is 3.2. BNP is 234. Complete blood count notable for white blood cell count of 17.2 and hemoglobin and hematocrit 6.8 and 21.8, respectively. IMAGING: Chest x-ray shows stable cardiomegaly with increased Unit #: [id number] #: [id number] Patient: KAVYA HUNTER interstitial prominence and a right-sided infiltrate. CARDIOLOGY: EKG shows ST depression in leads V3-V6. Rate is 106. ASSESSMENT The patient is a 71-year-old female with: 1. Acute on chronic respiratory failure. 2. Healthcare-associated pneumonia. The patient received vancomycin, Zosyn, and tobramycin in the emergency department. 3. Gastrointestinal bleed. The patient received 80 mg of Protonix in the emergency department. 4. Anemia. The patient's hemoglobin was 8.1 on January 01, 2017. It is 6.8 today. 5. Diastolic dysfunction with an ejection fraction of 55% per record review. 6. Paroxysmal atrial fibrillation not currently on chronic anticoagulation. 7. Chronic obstructive pulmonary disease. 8. History of lung cancer, status post wedge resection. 9. Hypertension. 10. Obstructive sleep apnea noncompliant with CPAP. 11. Anxiety and depression. 12. Chronic kidney disease. PLAN 1. Admit to ICU. 2. N.p.o. 3. Normal saline at 75 mL/hour. 4. Blood cultures x2. 5. Sputum culture and sensitivity. 6. Streptococcal and legionella urine antigen test. 7. Procalcitonin level. 8. Vancomycin, Zosyn, and tobramycin for healthcare-associated pneumonia pending further workup. 9. Consult Dr. Bhakta regarding respiratory failure. 10. DuoNeb q.4 hours. 11. Solu-Medrol 80 mg IV q.12 hours. 12. Continue propofol drip per sedation protocol. 13. Serial cardiac enzymes. 14. Transfuse one unit of packed red blood cells now. 15. Hemoglobin and hematocrit one hour after transfusion and q.6 hours. 16. Protonix drip at 8 mg/hour. 17. Consult Dr. Hickey regarding GI bleed. 18. Repeat labs in the morning. 19. SCDs for DVT prophylaxis. Thirty-nine (39) minutes critical care time spent in the care of this patient (12:00 to 12:39 p.m.). Dictated by Cecilio Eddy/sadaf TD: 01/09/2017 14:03 JOB #: [id number] Unit #: [id number] #: [id number] Patient: KAVYA HUNTER HISTORY AND PHYSICAL Page 1 of 1 X Neelima Burgos MD X HISTORY AND PHYSICAL
--- NOTE | ~2017-01-09 | CR72 ---
[facility] A Service of [facility] & [facility] RADIOLOGY TEXT RESULTS PATIENT: KAVYA HUNTER LOCATION: [address] : [birth year] UNIT #: [id number] AGE: [address]: Neelima Burgos MD SEX: F ORDER DR: [id number] [facility] [address] [place], [place] [address] [id number] I MR#: [id number] Acc #: [id number] NAME: KAVYA HUNTER : 1945 SEX: F STUDY DATE/TIME: 01/09/2017 7:35 UNIT: [facility] ROOM: [facility] STUDY DESCRIPTION: CR Chest Single View Portable Attending Physician: Neelima Burgos M.D. Ordering Physician: Carmen Valdivia M.D. Primary Care Physician: Leopoldo Wallis Jr., M.D. MEDICAL IMAGING REPORT This report is preliminary unless electronic signature is present EXAM Portable chest 01/09/2017 INDICATION Intubation and line placement today. Shortness of air. FINDINGS AP portable chest compared with 12/30/2016. ET tube mid trachea. Right IJ line in the mid SVC. No pneumothorax. Heart remains enlarged. Background increased interstitial density may reflect developing edema. There is atelectasis or infiltrate at the right base. Postop changes noted in the left lung. There is atherosclerotic disease in the aorta. There is dextroscoliosis in the thoracic spine. IMPRESSION Well-positioned endotracheal tube and right IJ line. No pneumothorax. Stable cardiomegaly. Increased prominence of the interstitium could reflect very early edema. There is some mild infiltrate or atelectasis noted at the right base, new since the prior study. Dictated by... Bib Leo Jr., M.D. THIS IS AN ELECTRONICALLY VERIFIED REPORT Bib Leo Jr., M.D. at 01/09/2017 3:37 PM ROMARIO/jabier TD: 01/09/2017 13:11 JOB #: [id number] MEDICAL IMAGING REPORT Page 1 of 1 COPY
--- NOTE | ~2017-01-09 | CR72 ---
[facility] A Service of [facility] & [facility] RADIOLOGY TEXT RESULTS PATIENT: KAVYA HUNTER LOCATION: [place] [address] : [birth year] UNIT #: [id number] AGE: [address]: Pio Mojica MD SEX: F ORDER DR: [id number] [facility] [address] [place], [place] [address] [id number] MR#: [id number] Acc #: [id number] NAME: KAVYA HUNTER : 1945 SEX: F STUDY DATE/TIME: 01/11/2017 4:48 UNIT: [facility] ROOM: [facility] STUDY DESCRIPTION: CR Chest Single View Portable Attending Physician: Pio Mojica M.D. Ordering Physician: Barney Bhakta M.D. Primary Care Physician: Leopoldo Wallis Jr., M.D. MEDICAL IMAGING REPORT This report is preliminary unless electronic signature is present EXAM Portable chest INDICATION Respiratory failure. PROCEDURE Frontal view chest. COMPARISON 01/10/2017. FINDINGS Heart size stable. No new dense consolidation. Interval extubation. IMPRESSION Interval extubation. Otherwise stable. Dictated by... Kaushal Barros M.D. THIS IS AN ELECTRONICALLY VERIFIED REPORT Kaushal Barros M.D. at 01/11/2017 10:27 PM CORIN/jabier TD: 01/11/2017 05:58 JOB #: [id number] MEDICAL IMAGING REPORT Page 1 of 1 COPY
--- NOTE | ~2017-01-09 | CO ---
Unit #: [id number] #: [id number] Patient: KAVYA HUNTER [id number] [address] [place], [place] [address] [id number] MR#: [id number] NAME: KAVYA HUNTER. ROOM: 568 Age: 71 Sex: F Admission Date: 01/09/2017 : 1945 Attending Physician: Pio Mojica M.D. Primary Care Physician: Leopoldo Wallis Jr., M.D. CONSULTATION REPORT HISTORY OF PRESENT ILLNESS Ms. Hunter is a 71-year-old white female with a history of non-small cell lung cancer status post wedge resection, COPD, chronic respiratory failure, obstructive sleep apnea for which she refuses treatment, diastolic cardiac dysfunction, chronic kidney disease, paroxysmal atrial fibrillation, hypertension, morbid obesity, anxiety, and depression, who presented with increasing shortness of breath. Apparently, she had been in her normal state of health awakened about 6 in the morning short of breath. Her family member was staying with her and called EMS and then presented to the emergency room. Oxygen saturations were apparently in the 60, she was intubated and has been admitted. We were asked to see. Chest x-ray showed some mild increased interstitial markings with possibly some increased infiltrate in the right [place] [address], hemoglobin was 6.8. Rectal exam in the ER by ER physician revealed Hemoccult-positive stools. She was given Protonix, vancomycin, Zosyn, and tobramycin in the emergency department and has been admitted. We were asked to see. PAST MEDICAL HISTORY Significant for admission in earlier this month for COPD exacerbation and acute on chronic respiratory failure. She is maintained normally on 3 L of oxygen at home. She has COPD, hypertension, paroxysmal atrial fibrillation, obstructive sleep apnea and refuse CPAP, diastolic dysfunction with normal ejection fraction, history of lung cancer status post wedge resection, has had GI bleeding secondary to polypectomy. PAST SURGICAL HISTORY Cholecystectomy, hemorrhoidectomy, back surgery, colonoscopy, left lung wedge resection. FAMILY HISTORY Coronary artery disease. ALLERGIES Adhesives and trazodone. HOME MEDICATIONS Elavil, Celexa, DuoNeb, Symbicort, metoprolol, Lipitor, ProAir, Neurontin, docusate, folic acid, Xanax, amiodarone, Lasix, aspirin, and prednisone. SOCIAL HISTORY History of smoking. No alcohol or illicit drugs. Has been under hospice care right now, is changing her mind. Unit #: [id number] #: [id number] Patient: KAVYA HUNTER REVIEW OF SYSTEMS Not possible, the patient intubated. PHYSICAL EXAMINATION GENERAL: White female, morbidly obese, sedated on vent. VITAL SIGNS: Blood pressure 128/52, pulse is 85, respiratory rate 24, temperature 97.1. HEENT: Normocephalic and atraumatic. Pupils are equal, round, and reactive. Sclerae nonicteric. Nasal passages patent. Posterior pharynx not evaluated, orally intubated, #8.0 ET tube. NECK: Thick. Supple. Without JVD, mass, thyromegaly, or bruits. LUNGS: Reveal some crackles in the bases. Occasional rhonchi. CARDIAC: Regular rate and rhythm. Could not appreciate murmur, rub, or gallop. ABDOMEN: Nontender. Bowel sounds present. No hepatosplenomegaly. EXTREMITIES: Without clubbing, cyanosis, or edema. NEURO: Sedated on vent. SKIN: Warm and dry. IMPRESSION 1. Acute on chronic hypoxemic hypercarbic respiratory failure. 2. Bilateral infiltrates, mild congestive heart failure versus pneumonia favor congestive heart failure with normal procalcitonin. 3. Non-small cell lung cancer, status post wedge resection. 4. Obstructive sleep apnea, refused CPAP, probably aggravating factor to current event. 5. Tobacco abuse. 6. Paroxysmal atrial fibrillation. 7. Hyperlipidemia. 8. Diabetes mellitus. 9. Anemia. Possible gastrointestinal bleed. PLAN 1. Vent support, wean vent as tolerated. Rule out MN. Leukocytosis may be in part secondary to acute MN, secondary to untreated nocturnal sleep apnea. 2. Cover with sliding scale insulin. Consider echocardiogram, DVT prophylaxis, and ulcer prophylaxis. Further recommendations pending this. Dictated by... Barney Bhakta M.D. BLANK/gabe TD: 01/11/2017 06:06 JOB #: [id number] CONSULTATION REPORT Page 1 of 1 X Barney Bhakta MD CONSULTATION REPORT
--- NOTE | ~2017-01-09 | EKG ---
PATIENT: KAVYA HUNTER UNIT #: [id number] Ventricular Rate: 106 BPM Atrial Rate: 106 BPM P-R Interval: 172 ms QRS Duration: 102 ms Q-T Interval: 376 ms QTC Calculation(Bezet): 499 ms P [place]: 81 degrees Calculated R [place]: 13 degrees Calculated T [place]: 82 degrees Diagnosis Line: Sinus tachycardia with Premature atrial complexes Diagnosis Line: Nonspecific ST and T wave abnormality Diagnosis Line: Abnormal ECG Diagnosis Line: When compared with ECG of 29-DEC-2016 09:19, Diagnosis Line: Premature atrial complexes are now Present Diagnosis Line: ST now depressed in Lateral leads Diagnosis Line: Confirmed by JOSH DISLA MD ([id number]) on Diagnosis Line: 01/10/2017 10:51:39 AM INTERPRETING : KALA
--- NOTE | ~2017-01-09 | CR281 ---
[facility] A Service of [facility] RADIOLOGY TEXT RESULTS PATIENT: KAVYA UHNTER LOCATION: [place] [address] : [birth year] UNIT #: [id number] AGE: [address]: Neelima Burgos MD SEX: F ORDER DR: [id number] [facility] [address] [facility]. [place], [place] [address] [id number] I MR#: [id number] Acc #: [id number] NAME: KAVYA HUNTER : 1945 SEX: F STUDY DATE/TIME: 01/09/2017 7:36 UNIT: [facility] ROOM: [facility] STUDY DESCRIPTION: CR Wrist Min 3 View Lt Attending Physician: Neelima Burgos M.D. Ordering Physician: Carmen Valdivia M.D. Primary Care Physician: Leopoldo Wallis Jr., M.D. MEDICAL IMAGING REPORT This report is preliminary unless electronic signature is present EXAM Left wrist 01/09 INDICATIONS Pain and swelling today. No known trauma. TECHNIQUE Three views of the wrist were obtained FINDINGS There is degenerative disease predominately at the first carpal metacarpal joint. There is some chondrocalcinosis in the TFCC. No fractures are seen. IMPRESSION Degenerative disease as above, particularly at the first CMC joint. No fractures. Dictated by... Bib Leo Jr., M.D. THIS IS AN ELECTRONICALLY VERIFIED REPORT Bib Leo Jr., M.D. at 01/09/2017 3:37 PM RLK/pedro TD: 01/09/2017 13:06 JOB #: [id number] MEDICAL IMAGING REPORT Page 1 of 1 COPY
--- NOTE | ~2017-01-09 | DS ---
Unit #: [id number] #: [id number] Patient: KAVYA HUNTER [id number] [address] [place], [place] [address] [id number] MR#: [id number] NAME: KAVYA HUNTER. ROOM: 568 Age: 71 Sex: F Admission Date: 01/09/2017 : 1945 Discharge Date: 01/13/2017 Attending Physician: Kami Zhong M.D. Primary Care Physician: Leopoldo Wallis Jr., M.D. DISCHARGE SUMMARY REASON FOR ADMISSION Dyspnea. HISTORY OF PRESENT ILLNESS/HOSPITAL COURSE The patient is a 71-year-old female with underlying history of lung carcinoma, end-stage COPD, chronic respiratory failure, sleep apnea, diastolic dysfunction, atrial fibrillation, hypertension, morbid obesity who presented secondary to dyspnea. She was subsequently noted to be acutely hypoxic, was subsequently intubated in the emergency room, and placed in the ICU. In regard to her acute hypoxic respiratory failure, consultation was placed to Dr. Bhakta and associates for evaluation. Patient eventually was extubated and placed on telemetry floor. She was maintained on Solu-Medrol, IV antibiotics during that time. In review of her diastolic dysfunction, cardiology was consulted. No acute intervention was done here. Previous ejection fraction was noted to be between 50% to 55%. Secondary to chronic conditions including chronic respiratory failure, end-stage COPD, as well as, recurrent hospital admissions secondary to similar circumstance lung carcinoma, decision was made for consultation to be placed to hospice services. Apparently in the past, consideration was given to this before. However, patient was unsure at that time but given overall circumstance and medical conditions, patient was agreeable for hospice services. All family members were present as well. They understand the patient's primary goal will be comfort only. It was also noted the patient was Hemoccult positive with a decreased hemoglobin of 6.5 on admission. She was appropriately transfused while here but no further intervention was performed in lieu of poor respiratory status. After discussion with patient and family, all parties are in agreement. The patient will be transferred to inpatient hospice unit for ongoing care. Overall, her condition unfortunately and prognosis is poor. FINAL DISCHARGE DIAGNOSES 1. Acute on chronic respiratory failure requiring intubation. 2. Chronic respiratory failure, 3 L of O2. 3. End-stage chronic obstructive pulmonary disease. 4. Hypertension. 5. Paroxysmal atrial fibrillation. Unit #: [id number] #: [id number] Patient: KAVYA HUNTER 6. Anemia present on admission, likely gastrointestinal blood loss. 7. Obstructive sleep apnea with noncompliance of CPAP. 8. Diastolic dysfunction. 9. Prior history of lung carcinoma. FINAL DISCHARGE MEDICATIONS Per hospice service which will consist primarily of comfort only. Dictated by... Kami Zhong M.D. RICARDO/lukasz TD: 01/16/2017 14:27 JOB #: [id number] DISCHARGE SUMMARY Page 1 of 1 X Kami Zhong MD X DISCHARGE SUMMARY
--- NOTE | ~2017-01-09 | A ---
[facility] Nutrition Therapy DATE: 01/10/17 Patient: KAVYA Flores DALE Physician: GRAHAM Address: [address] [place] [address] Room/Bed: [address], Zip: [place] [address] Admit Date: 01/09/17 Date of : [birth year] Height: 5 5 Weight: 218 99 NUTRITIONAL ASSESSMENT: REASON: NPO status in ICU 71 yo female admitted for SOB, GIB PMH: Lung cancer s/p wedge resection, COPD, cholecystectomy, chronic respiratory failure, HTN, NURYS, CKD stage 3, Afib, obesity Anthropometrics: Ht: 5'4" Wt: 92 kg BMI: 34.8 IBW: 54.5 kg Labs: Gluc 196 BUN 8 Ca++ 7.8 Alb 2.8 Accuchecks 144-200 GFR 56.3 Meds: Propofol @ 20 mL/hr, protonix, solu-medrol, D5%, NaCl I/O & Bowel function: 3687/1635, last BM unknown Skin Integrity: Bruising BUE Dry skin BLE Dryness to BL feet Edema: none noted Estimated Nutrition Needs: 7289-7343 kcals (15-20 kcals/kg) 82-109 grams protein (1.5-2.0 grams/kg) Diet: NPO Assessment: Chart reviewed, events noted. Pt is intubated and sedated in the ICU. Propofol is providing an additional 528 kcals at this time. Per RN report, wean trial will completed for possible extubation today. No DHT in place at this time. Of note, the pt has hyperglycemia with no apparent h/o DM. Hyperglycemia may be medication-induced, as the pt is receiving solu-medrol. RD will provide diet and enteral recommendations below. Dx: Inadequate protein-energy intake RT clinical condition, ventilator dependence AEB NPO status. Intervention: 1. Enteral nutrition if the pt remains intubated 2. POCKET AND PULLEY MACHINE OPERATOR if the pt is extubated Monitoring, Evaluation and Goals: [facility] Nutrition Therapy DATE: 01/10/17 Patient: KAVYA WINSTONBOROUGH Physician: GRAHAM Address: [address] [place] [address] Room/Bed: [address], Zip: [place] [address] Admit Date: 01/09/17 Date of : [birth year] Height: 5 5 Weight: 218 99 1. Enteral nutrition; initiate if extubated 2. Oral intake; POCKET AND PULLEY MACHINE OPERATOR if the pt is extubated 3. Improve labs; glucose, accuchecks, GFR 4. GI; promote regular GI function Recommendations: 1. If the pt remains intubated, recommend obtaining enteral access and initiating enteral nutrition with Jevity 1.5 @ 20 mL/hr. Increase to goal indicated below based on whether or not the pt is receiving propofol: WHILE THE PT IS RECEIVING PROPOFOL: -Increase Jevity 1.5 to 30 mL/hr + 30 mL Prostat TID to provide: 1908 kcals/ 91 grams protein/ 547 mL free H20 WHEN PROPOFOL IS DISCONTINUED: -Increase Jevity 1.5 to 45 mL/hr + 30 mL Prostat once daily to provide: 1720 kcals/ 84 grams protein/ 821 mL free H20 2. If the pt is extubated, recommend POCKET AND PULLEY MACHINE OPERATOR evaluation. Advance diet per POCKET AND PULLEY MACHINE OPERATOR recommendations + heart healthy diet/ 6 small meals. 3. Monitor blood glucose levels and obtain an A1C if needed. Pt is at moderate nutritional risk. RD will follow hospital course per protocol. Respectfully, MAURIZIO CONCEPCION RD, LD [employer] [facility] [employer] [facility] cc: client file
[~2017-01-09 06:33] MED LIST changes: +DOXYCYCLINE HY100 M3 PO; +PREDNISONE PO
[2017-01-09 07:11] LABS: URINE SOURCE CATH
[2017-01-09 07:16] LABS: URINE APPEARANCE CLEAR; URINE BILIRUBIN NEG (NEG); URINE BLOOD NEG (NEG); URINE COLOR YELLOW; URINE GLUCOSE NEG (NEG); URINE KETONE NEG (NEG); URINE LEUKOCYTE ESTERASE NEG (NEG); URINE NITRATE NEG (NEG); URINE PROTEIN NEG (NEG); URINE SPECIFIC GRAVITY 1.009 (1.003-1.035); URINE UROBILINOGEN 0.2 MG/DL (NEG)
[2017-01-09 07:19] LABS: CULTURE INDICATED? NO
[2017-01-09 07:46] LABS: ARTERIAL BLD GAS O2 SATURATION 97.3 % (90.0-100.0); ARTERIAL BLOOD GAS CARBOXY HB 1.2 %sat (0.0-9.0); ARTERIAL BLOOD GAS HCO3 26.8 mmol/L; ARTERIAL BLOOD GAS pH 7.245 (7.350-7.450)
[2017-01-09 07:47] LABS: ARTERIAL BLOOD GAS PCO2 61.9 mmHg (35.0-45.0)
[2017-01-09 07:48] LABS: ARTERIAL BLOOD GAS ALLEN TEST NORMAL; ARTERIAL BLOOD GAS ART SITE RIGHT RADIAL; ARTERIAL BLOOD GAS DELIVERY VENT; ARTERIAL BLOOD GAS VENT MODE A/C; ARTERIAL DRAW? YES
[2017-01-09 08:10] LABS: POC - CKMB 1.1 ng/mL (0.0-7.9); POC - TROPONIN <0.05 ng/mL (<=0.05)
[2017-01-09 08:17] LABS: BASOPHIL% 0.3 % (0-2.5); EOSINOPHIL% 0.2 % (0.0-7.0); HEMATOCRIT 21.8 % (35.0-45.0); LYMPHOCYTE# 0.8 X10e3 (1.0-3.5); LYMPHOCYTE% 4.9 % (17.0-45.0); MEAN CELL VOLUME 92.7 FL (83-96); MEAN CORPUSCULAR HEMOGLOBIN 28.7 PG (28-34); MEAN PLATELET VOLUME 8.1 FL (6.5-11.5); MONOCYTE# 1.1 X10e3 (0-1.0); MONOCYTE% 6.7 % (3.0-12.0); NEUTROPHIL# 15.1 X10e3 (1.5-7.1); NEUTROPHIL% 87.9 % (40-75); PLATELET COUNT 241 X10e3 (140-420); RED BLOOD COUNT 2.35 X10e (3.90-5.30); RED CELL DISTRIBUTION WIDTH 18.1 % (11.0-15.5); WHITE BLOOD COUNT 17.2 X10e3 (4.0-10.5)
[2017-01-09 08:20] LABS: DIFF IND YES; HEMOGLOBIN 6.8 gm/dL (12.0-16.0)
[2017-01-09 08:30] LABS: INR 1.1; PARTIAL THROMBOPLASTIN TIME 25.3 SECONDS (23.5-31.3); PROTHROMBIN TIME (PATIENT) 11.8 SECONDS (10.0-11.7)
[2017-01-09 08:43] LABS: ALBUMIN SERUM 3.2 g/dL (3.5-5.0); BILIRUBIN, DIRECT 0.1 mg/dL (0.0-0.2); BILIRUBIN,INDIRECT 0.3 mg/dL (0.0-0.9); BILIRUBIN,TOTAL 0.4 mg/dL (0.2-2.0); CALCIUM SERUM 7.9 mg/dL (8.4-10.2); CREATININE SERUM 1.2 mg/dL (0.6-1.4); GLOM FILT RATE Estimated 45.1 mL/min (>60); POTASSIUM 3.4 mmol/L (3.5-5.1); PROTEIN TOTAL SERUM 5.9 g/dL (6.0-8.3)
[2017-01-09 09:46] LABS: ANISOCYTOSIS MOD; RBC NORMAL YES
[2017-01-09 09:47] LABS: HYPOCHROMIA SL; OVALOCYTES PRESENT
[2017-01-09 09:48] LABS: PLATELET ESTIMATE NORMAL (NORMAL)
[2017-01-09 10:30] LABS: MAGNESIUM 2.3 mg/dL (1.6-3.0)
[2017-01-09 10:38] LABS: POC - CKMB <1.0 ng/mL (0.0-7.9); POC - TROPONIN <0.05 ng/mL (<=0.05)
[2017-01-09 10:47] LABS: PROCALCITONIN 0.06 NG/ML
[2017-01-09 20:19] LABS: CK TOTAL 19 IU/L (26-140)
[2017-01-09 20:52] LABS: HEMATOCRIT 20.7 % (35.0-45.0)
[2017-01-09 20:53] LABS: HEMOGLOBIN 6.5 gm/dL (12.0-16.0)
[2017-01-10 04:07] LABS: ARTERIAL BLD GAS O2 SATURATION 98.4 % (90.0-100.0); ARTERIAL BLOOD GAS CARBOXY HB 0.4 %sat (0.0-9.0); ARTERIAL BLOOD GAS HCO3 25.6 mmol/L; ARTERIAL BLOOD GAS MET HB 0.8 %sat (0.0-2.0); ARTERIAL BLOOD GAS PCO2 41.6 mmHg (35.0-45.0); ARTERIAL BLOOD GAS pH 7.398 (7.350-7.450)
[2017-01-10 04:10] LABS: ARTERIAL BLOOD GAS ALLEN TEST NORMAL; ARTERIAL BLOOD GAS ART SITE RIGHT RADIAL; ARTERIAL BLOOD GAS DELIVERY VENT; ARTERIAL BLOOD GAS VENT MODE AC; ARTERIAL DRAW? YES
[2017-01-10 04:13] LABS: HEMATOCRIT 26.7 % (35.0-45.0); LYMPHOCYTE# 0.3 X10e3 (1.0-3.5); LYMPHOCYTE% 2.8 % (17.0-45.0); MEAN CORPUSCULAR HEMOGLOBIN 28.8 PG (28-34); MEAN CORPUSCULAR HGB CONC 32.2 g/dL (30-36); MEAN PLATELET VOLUME 8.3 FL (6.5-11.5); MONOCYTE# 0.1 X10e3 (0-1.0); MONOCYTE% 1.1 % (3.0-12.0); NEUTROPHIL# 9.9 X10e3 (1.5-7.1); NEUTROPHIL% 96.1 % (40-75); PLATELET COUNT 185 X10e3 (140-420); WHITE BLOOD COUNT 10.3 X10e3 (4.0-10.5)
[2017-01-10 04:16] LABS: DIFF IND NO; HEMOGLOBIN 8.6 gm/dL (12.0-16.0); MEAN CELL VOLUME 89.2 FL (83-96)
[2017-01-10 04:25] LABS: INR 1.1; PROTHROMBIN TIME (PATIENT) 11.5 SECONDS (10.0-11.7)
[2017-01-10 04:33] LABS: ALBUMIN SERUM 2.8 g/dL (3.5-5.0); BILIRUBIN,TOTAL 0.2 mg/dL (0.2-2.0); CALCIUM SERUM 7.8 mg/dL (8.4-10.2); GLOM FILT RATE Estimated 56.3 mL/min (>60); MAGNESIUM 2.1 mg/dL (1.6-3.0); PHOSPHOROUS 3.4 mg/dL (2.5-4.6); POTASSIUM 4.2 mmol/L (3.5-5.1); PROTEIN TOTAL SERUM 5.5 g/dL (6.0-8.3)
[2017-01-10 12:19] LABS: HEMATOCRIT 28.2 % (35.0-45.0)
[2017-01-10 15:14] LABS: ARTERIAL BLD GAS O2 SATURATION 98.2 % (90.0-100.0); ARTERIAL BLOOD GAS CARBOXY HB 0.2 %sat (0.0-9.0); ARTERIAL BLOOD GAS HCO3 24.3 mmol/L; ARTERIAL BLOOD GAS PCO2 33.9 mmHg (35.0-45.0); ARTERIAL BLOOD GAS pH 7.463 (7.350-7.450)
[2017-01-10 15:15] LABS: ARTERIAL BLOOD GAS ART SITE RIGHT RADIAL; ARTERIAL BLOOD GAS DELIVERY VENT; ARTERIAL BLOOD GAS VENT MODE CPAP; ARTERIAL DRAW? YES
[2017-01-11 03:38] LABS: ARTERIAL BLD GAS O2 SATURATION 97.2 % (90.0-100.0); ARTERIAL BLOOD GAS CARBOXY HB 0.7 %sat (0.0-9.0); ARTERIAL BLOOD GAS HCO3 25.1 mmol/L; ARTERIAL BLOOD GAS MET HB 0.8 %sat (0.0-2.0); ARTERIAL BLOOD GAS PCO2 33.3 mmHg (35.0-45.0); ARTERIAL BLOOD GAS pH 7.486 (7.350-7.450)
[2017-01-11 03:40] LABS: ARTERIAL BLOOD GAS ALLEN TEST NORMAL; ARTERIAL BLOOD GAS ART SITE RIGHT RADIAL; ARTERIAL BLOOD GAS DELIVERY NASAL CANNULA; ARTERIAL DRAW? YES
[2017-01-11 05:24] LABS: BASOPHIL% 0.2 % (0-2.5); HEMATOCRIT 27.3 % (35.0-45.0); HEMOGLOBIN 8.9 gm/dL (12.0-16.0); LYMPHOCYTE# 0.3 X10e3 (1.0-3.5); LYMPHOCYTE% 2.8 % (17.0-45.0); MEAN CELL VOLUME 90.1 FL (83-96); MEAN CORPUSCULAR HEMOGLOBIN 29.2 PG (28-34); MEAN CORPUSCULAR HGB CONC 32.5 g/dL (30-36); MEAN PLATELET VOLUME 8.4 FL (6.5-11.5); MONOCYTE# 0.3 X10e3 (0-1.0); MONOCYTE% 3.2 % (3.0-12.0); NEUTROPHIL# 8.7 X10e3 (1.5-7.1); NEUTROPHIL% 93.8 % (40-75); PLATELET COUNT 186 X10e3 (140-420); RED BLOOD COUNT 3.03 X10e (3.90-5.30); RED CELL DISTRIBUTION WIDTH 19.3 % (11.0-15.5); WHITE BLOOD COUNT 9.3 X10e3 (4.0-10.5)
[2017-01-11 05:41] LABS: DIFF IND NO
[2017-01-11 08:08] LABS: ALBUMIN SERUM 2.9 g/dL (3.5-5.0); BILIRUBIN,TOTAL 0.6 mg/dL (0.2-2.0); CALCIUM SERUM 7.9 mg/dL (8.4-10.2); CREATININE SERUM 1.3 mg/dL (0.6-1.4); MAGNESIUM 2.1 mg/dL (1.6-3.0); POTASSIUM 3.6 mmol/L (3.5-5.1); PROTEIN TOTAL SERUM 5.5 g/dL (6.0-8.3)
[2017-01-12 15:26] LABS: BASOPHIL% 0.1 % (0-2.5); HEMATOCRIT 28.8 % (35.0-45.0); LYMPHOCYTE# 0.2 X10e3 (1.0-3.5); LYMPHOCYTE% 1.7 % (17.0-45.0); MEAN CELL VOLUME 90.1 FL (83-96); MEAN CORPUSCULAR HEMOGLOBIN 28.3 PG (28-34); MEAN CORPUSCULAR HGB CONC 31.3 g/dL (30-36); MONOCYTE% 8.5 % (3.0-12.0); NEUTROPHIL# 10.3 X10e3 (1.5-7.1); NEUTROPHIL% 89.7 % (40-75); PLATELET COUNT 175 X10e3 (140-420); RED BLOOD COUNT 3.19 X10e (3.90-5.30); RED CELL DISTRIBUTION WIDTH 19.9 % (11.0-15.5); WHITE BLOOD COUNT 11.5 X10e3 (4.0-10.5)
[2017-01-12 15:52] LABS: DIFF IND NO
[2017-01-12 16:00] LABS: BUN/CREATININE RATIO 14.11; CALCIUM SERUM 8.6 mg/dL (8.4-10.2); CREATININE SERUM 1.7 mg/dL (0.6-1.4); GLOM FILT RATE Estimated 29.6 mL/min (>60); POTASSIUM 3.3 mmol/L (3.5-5.1)
[2017-01-13 06:33] LABS: HEMATOCRIT 27.8 % (35.0-45.0); HEMOGLOBIN 8.9 gm/dL (12.0-16.0); MEAN CELL VOLUME 89.6 FL (83-96); MEAN CORPUSCULAR HEMOGLOBIN 28.7 PG (28-34); MEAN CORPUSCULAR HGB CONC 32.1 g/dL (30-36); MEAN PLATELET VOLUME 8.2 FL (6.5-11.5); RED BLOOD COUNT 3.1 X10e (3.90-5.30); RED CELL DISTRIBUTION WIDTH 19.6 % (11.0-15.5); WHITE BLOOD COUNT 9.4 X10e3 (4.0-10.5)
[2017-01-13 06:48] LABS: CALCIUM SERUM 8.5 mg/dL (8.4-10.2); CREATININE SERUM 1.6 mg/dL (0.6-1.4); GLOM FILT RATE Estimated 31.9 mL/min (>60); POTASSIUM 3.3 mmol/L (3.5-5.1)
== END 2017-01-13 11:36 | disposition short-term general hospital (02) | DRG 208 ==
LOC: CED 06:33 → CEDOF 09:40 → CED 09:56 → CEDOF 09:56 → CICCU3 11:14 → C5C 01-12 01:38
PROVIDERS: Emergency Medicine; Family Medicine; Internal Medicine; Internal Medicine Gastroenterology
PROC: 0BH17EZ Insertion of Endotracheal Airway into Trachea, Via Natural or Artificial Opening (ICD-10-PCS; principal; 2017-01-09)
PROC: 5A1945Z Respiratory Ventilation, 24-96 Consecutive Hours (ICD-10-PCS; 2017-01-09)
PROC: 30233N1 Transfusion of Nonautologous Red Blood Cells into Peripheral Vein, Percutaneous Approach (ICD-10-PCS; 2017-01-09)
PROC: 05HM33Z Insertion of Infusion Device into Right Internal Jugular Vein, Percutaneous Approach (ICD-10-PCS; 2017-01-09)
DX: J96.21 Acute and chronic respiratory failure with hypoxia (principal); J18.9 Pneumonia, unspecified organism; I50.33 Acute on chronic diastolic (congestive) heart failure; E87.2 Acidosis; I13.0 Hypertensive heart and chronic kidney disease with heart failure and stage 1 through stage 4 chronic kidney disease, or unspecified chronic kidney disease; K92.2 Gastrointestinal hemorrhage, unspecified; E44.0 Moderate protein-calorie malnutrition; J44.0 Chronic obstructive pulmonary disease with (acute) lower respiratory infection; D62 Acute posthemorrhagic anemia; J96.22 Acute and chronic respiratory failure with hypercapnia; G47.33 Obstructive sleep apnea (adult) (pediatric); N18.9 Chronic kidney disease, unspecified; I48.0 Paroxysmal atrial fibrillation; F41.9 Anxiety disorder, unspecified; F32.9 Major depressive disorder, single episode, unspecified; E66.01 Morbid (severe) obesity due to excess calories; Z85.118 Personal history of other malignant neoplasm of bronchus and lung; Z90.49 Acquired absence of other specified parts of digestive tract; Z82.49 Family history of ischemic heart disease and other diseases of the circulatory system; Z88.8 Allergy status to other drugs, medicaments and biological substances; F17.210 Nicotine dependence, cigarettes, uncomplicated
CPT/HCPCS: 31500; 36600; 51702; 71010; 73110; 80048; 80053; 80076; 81003; 82308; 82550; 82553; 82803; 82947; 83605; 83735; 83880; 84100; 84484; 85014; 85018; 85025; 85027; 85610; 85730; 86850; 86900; 86901; 86923; 87040; 87070; 87077; 87186; 87205; 87899; 93005; 94002; 94003; 94640; 94664; 94760; 96365; 96367; 96375; 97110; 97116; 97163; 97166; 97530; 99291; C9113; G8978-GP; G8979-GP; G8987-GO; G8988-GO; G8989-GO; J0171; J1815; J1940; J2543; J2920; J2930; J3260; J3370; P9016